=== PATIENT | male | born 1950 | race Caucasian/White ===

== ENCOUNTER 2023-04-30 09:01 | Day surgery (SDC) | payer MEDICARE, OTHER, SELFPAY ==
--- NOTE | 2023-04-29 12:09 | P.CONAN_ITS ---
Documented by User: Pat Lyon NP 04/29/23 12:10 HPI - Anesthesia Eval Consult details Narrative: 72yo M for Upper Endoscopy and Colonoscopy [facility] Past Medical History Medical History Chronic constipation CKD (chronic kidney disease), stage III Diabetes Elevated cholesterol GERD (gastroesophageal reflux disease) HTN (hypertension) Prostate cancer Retinopathy Stress Urinary incontinence Surgical History Surgical History Hx of colonoscopy Hx of esophagogastroduodenoscopy Hx of prostatectomy Status post implantation of artificial urinary sphincter Social History Social History Patient Tobacco Use Status: Former Tobacco user Are you DNR?: No Advance Directives: No Advance Directives Information Provided: Yes Nutrition Risks: No Nutritional Risk Meds Allergies Allergy/AdvReac Type Severity Reaction Status Date / Time No Known Allergies Allergy Verified 04/30/23 10:00 Home Medications Medication Instructions Recorded Confirmed Last Taken Type cholecalciferol (vitamin D3) 50 50 mcg PO DAILY 04/29/23 04/29/23 Unknown History mcg (2,000 unit) capsule (Vitamin D3) clopidogrel 75 mg tablet 75 mg PO DAILY 04/29/23 04/29/23 04/23/23 History diltiazem HCl 180 mg 180 mg PO DAILY 04/29/23 04/29/23 Unknown History capsule,extended release 24 hr dulaglutide 1.5 mg/0.5 mL mg subcut QWEEK 04/29/23 Unknown History subcutaneous pen injector (Trulicity) insulin glargine 100 unit/mL (3 35 unit subcut BEDTIME 04/29/23 04/29/23 Unknown History mL) subcutaneous pen (Basaglar KwikPen U-100 Insulin) isosorbide mononitrate 30 mg 30 mg PO DAILY 04/29/23 04/29/23 Unknown History tablet,extended release 24 hr metformin 1,000 mg tablet 1,000 mg PO BID 04/29/23 04/29/23 Unknown History omeprazole 20 mg capsule,delayed 20 mg PO BID 04/29/23 04/29/23 Unknown History release polyethylene glycol 3350 17 gram 17 g PO DAILY 04/29/23 04/29/23 Unknown History oral powder packet (Miralax) semaglutide 1 mg/dose (4 mg/3 mL) 1 mg subcut QWEEK 04/29/23 04/29/23 Unknown History subcutaneous pen injector (Ozempic) sennosides 8.6 mg tablet (senna) 8.6 mg PO BID PRN Constipation 04/29/23 04/29/23 Unknown History simvastatin 80 mg tablet 80 mg PO DAILY 04/29/23 04/29/23 Unknown History trospium 60 mg capsule,extended 60 mg PO DAILY 04/29/23 04/29/23 Unknown History release 24 hr Exam Exam Date and Time: April 29, 2023 1209 Documented by User: Laurel Ga MD 04/30/23 11:00 [facility] Past Medical History Medical History Chronic constipation CKD (chronic kidney disease), stage III Diabetes Elevated cholesterol GERD (gastroesophageal reflux disease) HTN (hypertension) Prostate cancer Retinopathy Stress Urinary incontinence Family History Family history of problems with anesthesia: No Surgical History Surgical History Hx of colonoscopy Hx of esophagogastroduodenoscopy Hx of prostatectomy Status post implantation of artificial urinary sphincter History of Problems with Anesthesia: No Social History Social History Patient Tobacco Use Status: Former Tobacco user Are you DNR?: No Advance Directives: No Advance Directives Information Provided: Yes Nutrition Risks: No Nutritional Risk Meds Allergies Allergy/AdvReac Type Severity Reaction Status Date / Time No Known Allergies Allergy Verified 04/30/23 10:00 Home Medications Medication Instructions Recorded Confirmed Last Taken Type cholecalciferol (vitamin D3) 50 50 mcg PO DAILY 04/29/23 04/29/23 Unknown History mcg (2,000 unit) capsule (Vitamin D3) clopidogrel 75 mg tablet 75 mg PO DAILY 04/29/23 04/29/23 04/23/23 History diltiazem HCl 180 mg 180 mg PO DAILY 04/29/23 04/29/23 Unknown History capsule,extended release 24 hr dulaglutide 1.5 mg/0.5 mL mg subcut QWEEK 04/29/23 Unknown History subcutaneous pen injector (Trulicity) insulin glargine 100 unit/mL (3 35 unit subcut BEDTIME 04/29/23 04/29/23 Unknown History mL) subcutaneous pen (Basaglar KwikPen U-100 Insulin) isosorbide mononitrate 30 mg 30 mg PO DAILY 04/29/23 04/29/23 Unknown History tablet,extended release 24 hr metformin 1,000 mg tablet 1,000 mg PO BID 04/29/23 04/29/23 Unknown History omeprazole 20 mg capsule,delayed 20 mg PO BID 04/29/23 04/29/23 Unknown History release polyethylene glycol 3350 17 gram 17 g PO DAILY 04/29/23 04/29/23 Unknown History oral powder packet (Miralax) semaglutide 1 mg/dose (4 mg/3 mL) 1 mg subcut QWEEK 04/29/23 04/29/23 Unknown History subcutaneous pen injector (Ozempic) sennosides 8.6 mg tablet (senna) 8.6 mg PO BID PRN Constipation 04/29/23 04/29/23 Unknown History simvastatin 80 mg tablet 80 mg PO DAILY 04/29/23 04/29/23 Unknown History trospium 60 mg capsule,extended 60 mg PO DAILY 04/29/23 04/29/23 Unknown History release 24 hr Exam Airway Mallampati Class: II TM Dist: >3cm Neck ROM: Full Loose/Missing/Broken Teeth: Yes and Upper Heart: rrr Lungs: cta Assessment and Plan Assessment Anesthesia Assessment: Anesthesia Plan Discussed and Chart Reviewed Final Anesthetic Review Family History of Problems with Anesthesia: No History of Problems with Anesthesia: No NPO: Yes ASA Class: III Final Preanesthetic Review: No Changes in Pt Med Stat, Meds/Allgs Chart Reviewed, Consent Obtained/Reviewed and Anes Risks/Benef Reviewed Anesthetic Plan Anesthetic Plan: MAC: Disposition: Standard PACU
[2023-04-30 09:14] VITALS: BMI 25.8
[2023-04-30] MEDS: Lactated Ringers 1,000 ML 50 ML IVCONT (09:47)
[2023-04-30 09:59] VITALS: BP 134/70; PULSE 89; RESP 18; TEMP 36.7; O2SAT 95
[2023-04-30 10:01] LABS: Glucose, Whole Blood 77 mg/dL (60-115)
--- NOTE | 2023-04-30 10:58 | MHC.SHP ---
Pre-Procedural Eval Section A Date of Service: 04/30/23 The patient is an INPATIENT: No Changes since office visit: No Cold of Flu in the past 2 weeks, No New Medical Problems, No Changes in Medication and No Patient answered all questions The History & Physical has been completed within 30 days and I have reviewed it.: Yes Section B Chief Complaint: change in bowel habit,reflux disease Allergies: Allergies Allergy/AdvReac Type Severity Reaction Status Date / Time No Known Allergies Allergy Verified 04/30/23 10:00 Plan I have reviewed the history and physical and performed a pertinent physical examination on my patient. No changes have occurred unless specified. Time Spent With Patient Time: Total time managing care of this patient today ____ minutes.
[2023-04-30] MEDS: Dextrose 10 % 250 ML 50 ML IVCONT (11:11)
--- NOTE | 2023-04-30 11:12 | PC.NURSE ---
Patient POC was 77. patient remained asymptomatic throughtout sss stay. Patient stated checks bs at home and is aware of when it is too low and did not feel this way in sss. Dr. Ga ordered 1000 ml bag of Dextrose 10%. ICU, pharmacy and store room checked and was unavailable in this size. Dextrose 10% 250 ML was available. Ordered changed with the doctor at bedside once she was updated.
--- NOTE | 2023-04-30 11:40 | P.BOP_ITS ---
Brief Operative Note Date of Service: 04/30/23 Pre-op diagnosis: gerd change in bowel Post-op diagnosis: same Procedure: egd incomplete colonoscopy/flexible sigmoidoscopy Surgeon: Tan Chauhan Anesthesia: MAC Was an Hydraulic And Plumbing Installer used for this Procedure?: No Estimated blood loss (mL): 2 Pathology: other Condition: stable Disposition: PACU
[2023-04-30 11:43] VITALS: BP 104/65; PULSE 79; RESP 16; TEMP 36.4; O2SAT 98
[2023-04-30 11:58] VITALS: BP 108/69; PULSE 76; RESP 16; TEMP 36.4; O2SAT 98
--- NOTE | 2023-04-30 12:41 | OP_ITS ---
DATE OF SERVICE: 04/30/2023 SURGEON: Tan Chauhan MD INDICATIONS: 1. Gastroesophageal reflux disease. 2. Change in bowels. PREOPERATIVE DIAGNOSIS: POSTOPERATIVE DIAGNOSIS: PROCEDURE PERFORMED: 1. Upper endoscopy with biopsy. 2. Flexible sigmoidoscopy to about 30 cm. ESTIMATED BLOOD LOSS: COMPLICATIONS: ANESTHESIA: Monitored anesthesia care. ASSISTANTS: SPECIMENS: DESCRIPTION OF PROCEDURE: A history and physical was performed. The risks and benefits of the procedure were explained to the patient. Informed consent was obtained. The patient was placed in the left lateral decubitus position. The Olympus video gastroscope was introduced into the esophagus, stomach, and duodenum. Examination was performed. The scope was removed he was repositioned for colonoscopy. A digital rectal exam was performed and was found to be normal. The Olympus pediatric video colonoscope was introduced into the rectum and advanced to 30 cm. Further examination was not possible due to formed stool in the sigmoid. Examination was performed, and the scope was removed. He tolerated both procedures well and was returned to the recovery area in stable condition. FINDINGS: Upper endoscopy: 1. Esophagus: The esophagus was normal. There was an irregular EG junction. This was biopsied. There was a 2 cm hiatal hernia. 2. Stomach: The stomach showed several benign-appearing less than 10 mm polyps in the body and fundus consistent with fundic colon polyps. Two of these were biopsied. Antral biopsies were also obtained to rule out H pylori. There was no ulceration or gastritis. 3. Duodenum: The bulb and 2nd portion were normal. Flexible sigmoidoscopy: The scope could only be advanced to 30 cm due to formed stool present in the sigmoid. There were no mucosal changes. Retroflexed examination was not attempted due to the poor prep. IMPRESSION: 1. Gastroesophageal reflux disease. 2. Incomplete colonoscopy/flexible sigmoidoscopy. RECOMMENDATION: 1. Follow up the biopsy results. 2. Repeat colonoscopy should be performed after a 2 day bowel prep if the patient is agreeable. MD YANA Kenney/OBED / [id number]
== END 2023-04-30 12:40 | disposition home or self-care (01) ==
PROVIDERS: PCP Internal Medicine; Visit Provider Internal Medicine Gastroenterology
PROC: (CPT 45330; principal; 2023-04-30 10:30)
DX: R19.4 Change in bowel habit (principal); K59.09 Other constipation; K21.9 Gastro-esophageal reflux disease without esophagitis; K31.7 Polyp of stomach and duodenum; K44.9 Diaphragmatic hernia without obstruction or gangrene; I12.9 Hypertensive chronic kidney disease with stage 1 through stage 4 chronic kidney disease, or unspecified chronic kidney disease; E11.22 Type 2 diabetes mellitus with diabetic chronic kidney disease; N18.30 Chronic kidney disease, stage 3 unspecified; N39.3 Stress incontinence (female) (male); E78.5 Hyperlipidemia, unspecified; H35.00 Unspecified background retinopathy; Z79.4 Long term (current) use of insulin; Z79.899 Other long term (current) drug therapy; Z85.46 Personal history of malignant neoplasm of prostate; Z87.891 Personal history of nicotine dependence
CPT/HCPCS: 45330; 43239; 82947; 88305; 88342

== ENCOUNTER 2023-06-15 08:42 | Day surgery (SDC) | payer MEDICARE, OTHER, SELFPAY ==
--- NOTE | 2023-06-14 14:42 | HO.ANESPROP2 ---
Documented by User: Pat Lyon NP 06/14/23 14:47 HPI - Anesthesia Eval Consult details Narrative: 73yo M for Colonoscopy s/p EGD and [place] 04/2023 with MAC clopidagrel for hx TIA ~2007 PMF[facility] Past Medical History Medical History Chronic constipation CKD (chronic kidney disease), stage III Diabetes Elevated cholesterol GERD (gastroesophageal reflux disease) HTN (hypertension) Prostate cancer Retinopathy Stress Urinary incontinence Family History Family history of problems with anesthesia: No Surgical History Surgical History Hx of colonoscopy Hx of esophagogastroduodenoscopy Hx of prostatectomy Status post implantation of artificial urinary sphincter History of Problems with Anesthesia: No Social History Social History Patient Tobacco Use Status: Former Tobacco user Are you DNR?: No Advance Directives: No Advance Directives Information Provided: Yes Nutrition Risks: No Nutritional Risk Meds Allergies Allergy/AdvReac Type Severity Reaction Status Date / Time No Known Allergies Allergy Verified 04/30/23 10:00 Home Medications Medication Instructions Recorded Confirmed Last Taken Type cholecalciferol (vitamin D3) 50 50 mcg PO DAILY 04/29/23 04/29/23 Unknown History mcg (2,000 unit) capsule (Vitamin D3) clopidogrel 75 mg tablet 75 mg PO DAILY 04/29/23 04/29/23 04/23/23 History diltiazem HCl 180 mg 180 mg PO DAILY 04/29/23 04/29/23 Unknown History capsule,extended release 24 hr dulaglutide 1.5 mg/0.5 mL mg subcut QWEEK 04/29/23 Unknown History subcutaneous pen injector (Trulicity) insulin glargine 100 unit/mL (3 35 unit subcut BEDTIME 04/29/23 04/29/23 Unknown History mL) subcutaneous pen (Basaglar KwyaelPen U-100 Insulin) isosorbide mononitrate 30 mg 30 mg PO DAILY 04/29/23 04/29/23 Unknown History tablet,extended release 24 hr metformin 1,000 mg tablet 1,000 mg PO BID 04/29/23 04/29/23 Unknown History omeprazole 20 mg capsule,delayed 20 mg PO BID 04/29/23 04/29/23 Unknown History release polyethylene glycol 3350 17 gram 17 g PO DAILY 04/29/23 04/29/23 Unknown History oral powder packet (Miralax) semaglutide 1 mg/dose (4 mg/3 mL) 1 mg subcut QWEEK 04/29/23 04/29/23 Unknown History subcutaneous pen injector (Ozempic) sennosides 8.6 mg tablet (senna) 8.6 mg PO BID PRN Constipation 04/29/23 04/29/23 Unknown History simvastatin 80 mg tablet 80 mg PO DAILY 04/29/23 04/29/23 Unknown History trospium 60 mg capsule,extended 60 mg PO DAILY 04/29/23 04/29/23 Unknown History release 24 hr Exam Exam Date and Time: June 14, [id number] Assessment and Plan Assessment Anesthesia Assessment: Chart Reviewed Final Anesthetic Review Family History of Problems with Anesthesia: No History of Problems with Anesthesia: No Documented by User: Zoe Reed MD 06/15/23 10:19 PMF Past Medical History Medical History Chronic constipation CKD (chronic kidney disease), stage III Diabetes Elevated cholesterol GERD (gastroesophageal reflux disease) HTN (hypertension) Prostate cancer Retinopathy Stress Urinary incontinence Surgical History Surgical History Hx of colonoscopy Hx of esophagogastroduodenoscopy Hx of prostatectomy Status post implantation of artificial urinary sphincter Social History Social History Patient Tobacco Use Status: Former Tobacco user Are you DNR?: No Advance Directives: No Advance Directives Information Provided: Yes Nutrition Risks: No Nutritional Risk Meds Allergies Allergy/AdvReac Type Severity Reaction Status Date / Time No Known Allergies Allergy Verified 04/30/23 10:00 Home Medications Medication Instructions Recorded Confirmed Last Taken Type cholecalciferol (vitamin D3) 50 50 mcg PO DAILY 04/29/23 04/29/23 Unknown History mcg (2,000 unit) capsule (Vitamin D3) clopidogrel 75 mg tablet 75 mg PO DAILY 04/29/23 04/29/23 04/23/23 History diltiazem HCl 180 mg 180 mg PO DAILY 04/29/23 04/29/23 Unknown History capsule,extended release 24 hr dulaglutide 1.5 mg/0.5 mL mg subcut QWEEK 04/29/23 Unknown History subcutaneous pen injector (Trulicity) insulin glargine 100 unit/mL (3 35 unit subcut BEDTIME 04/29/23 04/29/23 Unknown History mL) subcutaneous pen (Basaglar KwikPen U-100 Insulin) isosorbide mononitrate 30 mg 30 mg PO DAILY 04/29/23 04/29/23 Unknown History tablet,extended release 24 hr metformin 1,000 mg tablet 1,000 mg PO BID 04/29/23 04/29/23 Unknown History omeprazole 20 mg capsule,delayed 20 mg PO BID 04/29/23 04/29/23 Unknown History release polyethylene glycol 3350 17 gram 17 g PO DAILY 04/29/23 04/29/23 Unknown History oral powder packet (Miralax) semaglutide 1 mg/dose (4 mg/3 mL) 1 mg subcut QWEEK 04/29/23 04/29/23 Unknown History subcutaneous pen injector (Ozempic) sennosides 8.6 mg tablet (senna) 8.6 mg PO BID PRN Constipation 04/29/23 04/29/23 Unknown History simvastatin 80 mg tablet 80 mg PO DAILY 04/29/23 04/29/23 Unknown History trospium 60 mg capsule,extended 60 mg PO DAILY 04/29/23 04/29/23 Unknown History release 24 hr Exam Airway Mallampati Class: III TM Dist: >3cm Neck ROM: Full Loose/Missing/Broken Teeth: Yes and Upper Heart: RRR Lungs: CTA Assessment and Plan Assessment Anesthesia Assessment: Anesthesia Plan Discussed Final Anesthetic Review NPO: Yes ASA Class: III Final Preanesthetic Review: Meds/Allgs Chart Reviewed, Consent Obtained/Reviewed and Anes Risks/Benef Reviewed Patient Risk: Intermediate Procedure Risk: Low Anesthetic Plan Anesthetic Plan: MAC: Disposition: Standard PACU
[2023-06-15 06:16] VITALS: BMI 25.8
[2023-06-15 09:34] VITALS: BP 153/77; PULSE 83; RESP 18; TEMP 36.6; O2SAT 97
[2023-06-15 09:34] LABS: Glucose, Whole Blood 77 mg/dL (60-115)
[2023-06-15] MEDS: Lactated Ringers 1,000 ML 100 ML IVCONT (09:49)
[2023-06-15] MEDS: Dextrose 5 % 100 ML IVCONT (09:50)
[2023-06-15 10:08] LABS: Glucose, Whole Blood 95 mg/dL (60-115)
--- NOTE | 2023-06-15 10:21 | PC.NURSE ---
Dr. Reed updated that patient POC was 77 and patient was feeling slightly symptomatic. She ordered 5% Dextrose 100 ML. F/u POC was 95. Patient stated feeling much better.
--- NOTE | 2023-06-15 10:34 | MHC.SHP ---
Pre-Procedural Eval Section A Date of Service: 06/15/23 Section B Chief Complaint: Other specified symptoms and signs involving Details of Present Illness: see H&P no changes Relevant Family History (Specify if Yes): No Relevant Social History: None Present Medications: see Short Stay Collaborative assessment Medical History: No relevant PMH History of Previous Operations: No relevant previous surgery Allergies: Allergies Allergy/AdvReac Type Severity Reaction Status Date / Time No Known Allergies Allergy Verified 04/30/23 10:00 Review of Systems Sugical H&P ROS: Negative: Constitution, Cardiovascular, Respiratory, Neurological, Psychiatric, Hem-Onc, Allergic/Immunologic, Gastrointestinal, Genitourinary, Musculoskeletal, Integumentary, Endocrine and Eyes/Ears/Nose/Throat Exam Surgical H&P Exam: Normal: HEENT, Normal: Heart, Normal: Lungs, Normal: Extremities, Normal: Abdomen, Normal: Skin and Normal: Neurological Plan I have reviewed the history and physical and performed a pertinent physical examination on my patient. No changes have occurred unless specified. Time Spent With Patient Time: Total time managing care of this patient today ____ minutes.
[2023-06-15 11:25] VITALS: BP 131/80; PULSE 77; RESP 20; TEMP 36.4; O2SAT 98
--- NOTE | 2023-06-15 11:26 | PM.OP ---
Brief Operative Note Date of Service: 06/15/23 Pre-op diagnosis: change in bowels Post-op diagnosis: same Procedure: colonoscopy Surgeon: Tan Chauhan Anesthesia: MAC Was an Early Childhood Director used for this Procedure?: No Estimated blood loss (mL): 0 Pathology: none sent Condition: stable Disposition: PACU
[2023-06-15 11:34] LABS: Glucose, Whole Blood 101 mg/dL (60-115)
[2023-06-15 11:40] VITALS: BP 153/84; PULSE 74; RESP 18; TEMP 36.4; O2SAT 93
--- NOTE | 2023-06-15 22:05 | OP_ITS ---
DATE OF SERVICE: 06/15/2023 SURGEON: Tan Chauhan MD INDICATIONS: Change in bowel habits. PREOPERATIVE DIAGNOSIS: POSTOPERATIVE DIAGNOSIS: PROCEDURE PERFORMED: Colonoscopy to the hepatic flexure. ESTIMATED BLOOD LOSS: COMPLICATIONS: ANESTHESIA: Monitored anesthesia care. ASSISTANTS: SPECIMENS: DESCRIPTION OF PROCEDURE: A history and physical were performed. The risks and benefits of the procedure were explained to the patient. Informed consent was obtained. The patient was placed in the left lateral decubitus position. A digital rectal exam was performed and was found to be normal. The Olympus pediatric video colonoscope was introduced into the rectum. The scope could only be advanced to the hepatic flexure due to the poor prep. Examination was performed. The scope was removed. He tolerated the procedure well and was taken to recovery area in stable condition. FINDINGS: The exam was extremely limited due to a large amount of stool, both liquid and solid present in the colon. This limited the examination for detection of polyps. No mass lesion was identified. The mucosa where it was visualized after washing,, appeared normal. The exam was further limited by the patient's inability to hold air; and continuous evacuation of both liquid and solid stool during the procedure, made the procedure extremely difficult. Retroflexed examination was limited. Some internal hemorrhoids were identified. Basically the exam was nondiagnostic because of the incomplete prep. IMPRESSION: 1. Incomplete colonoscopy. 2. Change in bowel habits. 3. Limited examination as above. 4. consider repeat examination with 2 day prep. MD YANA Kenney/ALFREDOL / [id number] [facility]
== END 2023-06-15 12:17 | disposition home or self-care (01) ==
PROVIDERS: PCP Internal Medicine; Visit Provider Internal Medicine Gastroenterology
PROC: 0DJD8ZZ Inspection of Lower Intestinal Tract, Via Natural or Artificial Opening Endoscopic (ICD-10-PCS; CPT 45378; principal; 2023-06-15 09:50)
DX: R19.8 Other specified symptoms and signs involving the digestive system and abdomen (principal); K64.8 Other hemorrhoids; K21.9 Gastro-esophageal reflux disease without esophagitis; Z53.8 Procedure and treatment not carried out for other reasons; Z79.899 Other long term (current) drug therapy; E11.22 Type 2 diabetes mellitus with diabetic chronic kidney disease; I12.9 Hypertensive chronic kidney disease with stage 1 through stage 4 chronic kidney disease, or unspecified chronic kidney disease; N18.30 Chronic kidney disease, stage 3 unspecified; E78.5 Hyperlipidemia, unspecified; Z85.46 Personal history of malignant neoplasm of prostate; Z87.891 Personal history of nicotine dependence; Z79.84 Long term (current) use of oral hypoglycemic drugs; Z79.85 Long-term (current) use of injectable non-insulin antidiabetic drugs
CPT/HCPCS: 45378; 82947

== ENCOUNTER → 2024-12-26 11:02 | Outpatient (BNVA) | payer MEDICARE, OTHER, SELFPAY | PROVIDERS: PCP Internal Medicine; Visit Provider Student in an Organized Health Care Education/Training Program | DX: E11.22 Type 2 diabetes mellitus with diabetic chronic kidney disease (principal); N18.31 Chronic kidney disease, stage 3a; E78.2 Mixed hyperlipidemia; Z79.4 Long term (current) use of insulin | CPT/HCPCS: 82947; 83036; 99202 ==

== ENCOUNTER 2025-01-15 11:00 | Outpatient (AMB) | payer MEDICARE, OTHER, SELFPAY ==
--- NOTE | 2025-01-15 11:19 | A.OFFVIS_ITS ---
Vital Signs 3 01/15/25 11:20 Height 5 ft 8 in Weight 164 lb 3.91 oz BMI 25.0 BP 114/60 Blood Pressure Location Lt brachial Position Sitting Pulse 67 Pulse Source Pulse Oximeter Intake Visit Reasons: T2DM Intake Note: Patient present today for Type 2 Diabetes Mellitus Last Diabetic eye exam: 06/2024 Last Podiatry Visit: Doesn't have one Random Glucose: 144 mg/dl HgA1C: 10.2% 12/26/24 Shear Grinder Operator Helper Required: No Accompanied by: Spouse Allergies No Known Allergies Allergy (Verified 01/15/25 11:24) HPI Comments Details: 74-year-old male here today for follow up of type 2 diabetes mellitus with long- term insulin use with complications of CKD stage 2, CAD, hyperlipidemia, hypertension, retinopathy. Here today with Sina . History of diabetes Diagnosed at the age of late 20s. Family history Brother: Type 2 DM no one with Type 1 DM Prior therapy: Has been on insulin for over 10 years Has been on OZempic for many years as well Jardiance started sometime early 2023 Previously has tried Trulicity Current regimen: Ozempic 2 mg weekly increased from 1 mg 12/26/24 Jardiance 25 mg daily Basagalar 45 units daily at bedtime Reports good adherence never misses medication SMBG fasting 79, 164, 119, 95, 95, 171 2 hours post meal 277, 243, 450, 301, 474, 301 Random Bg today 144mg/dl A1c POC 12/26/24 10.2%. Does endorse symptoms of hyperglycemia including polyphagia, polyuria, polydipsia. One blood sugar is 71 mg/dl from April 14? He says he had a single epiesode in August 2024 Vaccines:Flu shot July 2024, Pneumoccocal vaccine , no booster for COVID ,but vaccinated initially Complications Eye exam: Last eye exam was 06/2024, has retinopathy , bad report last visit . Neuropathy: none Kidney disease: Follows with Nephrology AMY Espinoza in [place] , CKD stage 2-3 03/29/2024: Albumin/creatinine ratio 164 Urine albumin 102 0.6 EGFR 40 Creatinine 1.74 Macrovascular complications:has CAD? , has has TIAs in the past Statin:simvasatin 80 mg daily , 05/2024: LDL 75 mg per day ABHINAV/ARB: no ABHINAV /ARB Exercise: Walks in summer, takes the dog out not much more Has a appointments with CDE and bus inspector on 01/16/2025 tomorrow Diet control: never seen bus inspector 7-8Am : cereal or ivorian muffin snacks salsa with rackers or chips Lunch 11-1130 sandwich with tuna or salami Snacks salsa with chips Dinner : spaghetti No dessert [place] water with some sugar Physical exam General: sitting comfortably in no acute distress HEENT: normocephalic/atraumatic, Neck: supple, symmetrical Cardiac: normal heart sounds Pulm: normal breath sounds B/L, no added breath sounds Abd: not distended, no tenderness Extremities: no edema, no signs of myxedema Neuro: AAO x3, Speech: normal, no facial droop, moving all 4 extremities PFSH Medical History (Updated 12/26/24 @ 12:29 by Linda Pacheco MD) HLD (hyperlipidemia) Diabetes mellitus Prostate cancer Elevated cholesterol HTN (hypertension) Retinopathy CKD (chronic kidney disease), stage III Stress Urinary incontinence GERD (gastroesophageal reflux disease) Chronic constipation Diabetes Surgical History Hx of colonoscopy Hx of esophagogastroduodenoscopy Hx of prostatectomy Status post implantation of artificial urinary sphincter Social History Patient Tobacco Use Status: Former Tobacco user Physical Exam Vital Signs: Last Vital Signs Pulse 67 01/15/25 11:20 BP 114/60 01/15/25 11:20 BMI result Body Mass Index 25.0 Assessment & Plan Assessment & Plan (1) Diabetes mellitus: Code(s): E11.9 - Type 2 diabetes mellitus without complications Category: Medical Qualifiers: Chronic kidney disease stage: stage 3 (moderate) Chronic kidney disease stage 3 subtype: stage 3a (GFR 45-59) Diabetes mellitus complication detail: w ith chronic kidney disease Diabetes mellitus complication status: with kidney complications Diabetes mellitus extermination inspector insulin use: with extermination inspector use D iabetes mellitus type: type 2 Qualified Code(s): E11.22 - Type 2 diabetes mellitus with diabetic chronic kidney disease; N18.31 - Chronic kidney disease, stage 3a; Z79.4 - nursing home (current) use of insulin Plan: 74-year-old male who was diagnosed with type 2 diabetes mellitus when he was in his late 20s, who is currently on long-term insulin with complications of CKD stage 2/3A, microalbuminuria, retinopathy, CAD, TIA. A1c 12/26/2024 10.2%. It is interesting that over the past year patient's A1c has been climbing up with no improvement with the increase in insulin. Patient endorses adherence to his medications. I does definitely important for him to see our educator so at least it can be ensured that he is taking his insulin the right way. He says his weight has been stable, but it is important to keep in mind that if he continues to have worsened control despite modifying his regimen, there might be a secondary reason to worsening control and we should keep in mind other sinister reasons such as pancreatic cancer? I prescribed him Dexcom G7 sensor last time, this is still awaiting insurance authorization, he brought his glucometer today and I was able to sees readings that he is having better readings for fasting blood sugars mostly around 90s to early 100s, however he continues to have elevated post meal blood sugars in the 200s to up to 400s. I will switch his Basaglar to morning time so he can over how have better control over the day. At this point I will also start him on some mealtime insulin before his supper to control these postprandial spikes. I Plan: -continue Ozempic to 2 mg weekly -switch Basaglar to morning time and reduce it to 40 units daily, I told him we can inject 10 units Basaglar tonight to allow for transition to tomorrow morning. -start insulin Humalog 5 units 15 mins before supper daily. -continue Jardiance 25 mg daily -waiting for pre authorization for Dexcom G7 sensor -advised importance of checking blood sugars at least thrice a day before he gets his sensors, fasting , pre meal before supper and 2 hours post meal, targets described -hypoglycemia education provided -discussed importance of lowering blood sugars and risks of hyperglycemia -follow up in 4 weeks -diabetes education appointment pending for CGM education -nutrition appointment pending -up-to-date with eye visit, has a history of retinopathy, follows with Ophthalmology -lipid panel, urine microalbumin, CMP, platelet ordered to be done prior to next visit, I had ordered these last visit, however they forgot to do them. Note: Given early age of onset of type 2 diabetes, plus uncontrolled diabetes, we will consider checking antibodies and a C-peptide in the future visits. (2) HLD (hyperlipidemia): Code(s): E78.5 - Hyperlipidemia, unspecified Category: Medical Qualifiers: Hyperlipidemia type: mixed hyperlipidemia Qualified Code(s): E78.2 - Mixed hyperlipidemia Plan: On simvastatin 80 mg daily Last LDL from May 2024 was 75 mg/dL, goal LDL less than 70 mg/dL Plan: -repeat lipid panel ordered last visit -continue simvastatin 80 mg daily Plan I spent 30 minutes in reviewing the record, seeing the patient and documenting in the medical record. Medications: New 2 insulin lispro (Humalog KwikPen (U-100) Insulin) Daily 15 mins before supper 5 units (0.05 mL) subcut DAILY 15 mL 4RF pen needle, diabetic As directed to inject insulin twice a day 100 ea 3RF insulin glargine (Basaglar KwikPen U-100 Insulin) 40 units (0.4 mL) subcut QAM 15 mL 4RF Patient Instructions: Do fasting blood work and urine test, if you do this at outside lab, please have the results sent over Start insulin humalog (lispro) 5 units 15 mins before supper /dinner Always check blood sugar before giving insulin , if your premeal sugar is less than 85 mg/dl do not take the mealtime insulin Switch basagalar units from bedtime to morning , reduce basagalar to 40 units daily Continue jardiance Continue ozempic 2 mg weekly See [place] educator See bus inspector paper mill superintendent Dexcom sensor once insurance approve, please follow on the status of approval and bring this to your educator visit for sensor application. 'Always bring your meter to visits Continue checking blood sugars fasting in AM, 15 mins before supper , plus 2 hours after a meal your choice lunch or dinner Rule of 15 Treatment for Hypoglycemia (Low blood sugar) If your blood glucose is low (70 and below)*, follow the steps below to treat: Eat or drink something from the list below equal to 15 grams of carbohydrate (carb). Rest for 15 minutes Re-check your blood glucose. If it is still low, (below 70), repeat step 1 above. ? If your next meal is more than an hour away, you will need to eat one carbohydrate choice as a snack to keep your blood glucose from going low again. ?If you can't figure out why you have low blood glucose, call your healthcare provider, as your medicine may need to be adjusted. ?Always carry something with you to treat an insulin reaction. Use food from the list below. ? Foods equal to One Carbohydrate Choice (15 grams of carbohydrate): 3 Glucose ?tablets or 4 Dextrose tablets 4 ounces of fruit juice 5-6 ounces (about 1/2 can) of regular soda such as Coke or Pepsi ? 7-8 gummy or regular Life Savers ? 1 Tbsp. of sugar or jelly NOTE: If your blood sugar is less than 50, double the portion above for a total of 30 gm. ?Carbohydrate. ? Follow meal plan of 45-60 g of consistent carbohydrates at 3 meals each day and 15 g of carbohydrate at 1-2 snacks each day. Coding Level of Care Code Est Pt Level 4 (78635) Complex EM visit Add On G2211 Diagnoses Type 2 diabetes mellitus with stage 3a chronic kidney disease, with long-term current use of insulin E11.22; N18.31; Z79.4 Chronic kidney disease stage: stage 3 (moderate) Chronic kidney disease stage 3 subtype: stage 3a (GFR 45-59) Diabetes mellitus complication detail: with chronic kidney disease Diabetes mellitus complication status: with kidney complications Diabetes mellitus [facility] insulin use: with [facility] use Diabetes mellitus type: type 2 Mixed hyperlipidemia E78.2 Hyperlipidemia type: mixed hyperlipidemia Time Spent (min) 30
[2025-01-15 11:20] VITALS: BP 114/60; PULSE 67; BMI 25.0
[2025-01-15 11:29] LABS: Glucose, Whole Blood 144 mg/dL (60-115)
--- OUTSIDE RECORDS SUMMARY | 2025-01-15 12:40 | XMS_ITS ---
Author Organization [facility] Address [address] [place] [phone] Care Team Providers Care Inspector Type Name Role Phone Fausto MATA, Dina Primary Care Provider Tan Martin Jr REASON FOR VISIT [facility] refill requested MEDICATIONS Medication SIG (Take, Route, Frequency, Duration) Notes Start Date End Date Status Pantoprazole Sodium 40 MG 1 tablet Orall y Once a day for 30 days 04/07/2023 Active Encounters Encounter Location Date Provider Diagnosis [facility] [address] [facility] [address] [place] [phone] 12/24/2023 Tan Chauhan Jr Gastroesophageal reflux disease, unspecified whether esophagitis present K21.9 ASSESSMENTS Encounter Date Diagnosis Assessment Notes Treatment Notes Treatment Clinical Notes 12/24/2023 Gastroesophageal ref lux disease, unspecified whether esophagitis present (ICD-10 - K21.9) PLAN OF TREATMENT Medication Medication Name Sig Start Date Stop Date Notes Pantoprazole Sodium 40 MG 1 tablet Orall y Once a day for 30 days 04/07/2023
--- OUTSIDE RECORDS SUMMARY | 2025-01-15 12:40 | XMS_ITS | Clinical Summary ---
Author Organization [facility] Address [address] [phone] Phone Care Team Providers Care Plaster Form Maker Name Role Phone Dina Lambert MD Primary Care Provider [phone] Allergies No known active allergies Medications Insulin Glargine (BASAGLAR KWIKPEN SC) Inject 45 Units under the skin 1 (one) time each day Active isosorbide dinitrate (ISORDIL) 30 MG tablet Take 1 tablet by mouth 1 (one) time each day Active omeprazole (PriLOSEC) [address] capsule Take 20 mg by mouth 1 (one) time each day Active simvastatin (ZOCOR) 80 MG tablet Take 80 mg by mouth at bed time Active Cartia XT 180 MG 24 hr capsule Take 180 mg by mouth 1 (one) time each day 4 Active Cholecalciferol 50 MCG (1999 UT) capsule Take 1 capsule by mouth 1 (one) time each day 5 Active Ozempic, 1 MG/DOSE, 4 MG/3ML solution pen-injector INJECT 1MG UNDER THE SKIN ONCE WEEKLY ON THE SAME DAY OF EACH WEEK DIRECTED 4 Active aspirin (ST MARIO) 81 MG EC tablet Take 81 mg by mouth 1 (one) time each day Active senna (SENOKOT) 8.6 MG tablet Take 1 tablet by mouth in the morning and 1 tablet in the evening. Active sodium bicarbonate 650 MG tablet Take 1 tablet (650 mg total) by mouth in the morning and 1 tablet (650 mg total) in the evening and 1 tablet (650 mg total) before bedtime. 270 tablet 3 4 03/29/20 25 Active Empagliflozin (Jardiance) 10 MG tablet Take 10 mg by mouth 1 (one) time each day in the morning 30 tablet 5 4 Active Additional Information Patient taking differently: 25 mgOral Every morning, Reported on 11/27/2024 dilTIAZem HCl ER 180 MG tablet sustained-releas e 24 hour Take 180 mg by mouth 8 Active Active Problems Problem Noted Date Diagnosed Date Chronic kidney disease stage 3 03/28/2024 Hypertensive disorder 03/28/2024 Hypomagnesemia 03/28/2024 Proteinuria 03/28/2024 Renal disorder due to type 2 diabetes mellitus 0 03/28/2024 Encounters Date Type Department Care Team Description 11/27/2024 2:30 PM EST Office Visit [facility] [address] [phone] Lauro Zacarias MD Stage 3 chronic kidney disease, not otherwise specified (HCC) (Primary Dx); Hypertension; Type 2 diabetes mellitus with diabetic chronic kidney disease (HCC); Other proteinuria 10/17/2024 Orders Only [facility] [address] [phone] Provider, MD Malaika from Last 3 Months Immunizations Name Administration Dates Next Due Pneumococcal Polysaccharide 10/02/2015 Family History Medical History Relation Comments Heart disease Father Cancer Mother Diabetes Sibling 1 Cancer Sibling 2 Relation Status Comments Father Mother Sibling 1 Sibling 2 Social History Tobacco Use Types Packs/Day Years Used Date Smoking Tobacco: Smoker, Current Status Unknown Alcohol Use Standard Drinks/Week Comments Yes 0 (1 standard drink = 0.6 oz pure alcohol) Alcoholic Drinks/day: Occasional social drink Sex and Gender Information Value Date Recorded Sex Assigned at Not on file Legal Sex Male 4:41 PM EST Gender Identity Not on file Sexual Orientation Not on file Last Filed Vital Signs Vital Sign Reading Time Taken Comments Blood Pressure 110/62 11/27/2024 2:35 PM EST Pulse 80 11/27/2024 2:35 PM EST Temperature - - Respiratory Rate - - Oxygen Saturation 98% 03/29/2024 9:38 AM EDT Inhaled Oxygen Concentration - - Weight 74.4 kg (164 lb) 11/27/2024 2:35 PM EST Height - - Body Mass Index - - Plan of Treatment Upcoming Encounters Date Type Department Care Team (Late st Contact Info) Description 06/11/2025 1:45 PM EDT Office Visit [facility].. [address] [phone] Lauro Zacarias MD [address] [phone] Health Maintenance Due Date Last Done Comments Pneumococcal Vaccine: 65+ Ye ars (2 of 2 - PCV) 10/02/2016 10/02/2015 Diabetes: Hemoglobin A1C 12/22/2020 Diabetes: Ophthalmology Exam 12/22/2020 Diabetes: Pedal Pulse Checked 12/22/2020 Diabetes: Sensory Foot Exam 12/22/2020 Diabetes: Visual Foot Exam 12/22/2020 Influenza Vaccine (#1) 2024 Hepatitis B Vaccine Aged Out No longe r eligible based on patient's age to complete this topic Insurance MEDICARE MEDICARE [facility] Care Teams Plaster Form Maker Relationship Specialty Start Date End Date Dina Lambert MD [address] [place] [address], [address] [place] [address] PCP - General Internal Medicine 03/29/24
--- OUTSIDE RECORDS SUMMARY | 2025-01-15 12:40 | XMS_ITS | Patient Health Record ---
Author Organization [facility] Address [address] [place] [phone] Care Team Providers Care Hand Loom Weaver Name Role Phone Fausto MATA, Dina Primary Care Provider Tan Martin Jr Unavailable ALLERGIES Allergen (clinical drug ingredient) Drug/Non Drug Allergy documented on EMR Reaction Allergy Type Onset Date Status hayfever (uncoded) Unknown Allergy A ctive REASON FOR REFERRAL No Information MEDICATIONS Medication SIG (Take, Route, Frequency, Duration) Notes Start Date End Date Status dilTIAZem HCl ER 180 MG 1 tablet Orally Once a day for 30 day(s) Active Simvastatin 80 MG as directed Orally Active MiraLax (colon prep) 17 GM/SCOOP mixed with Gatorade or Crystal Light Orally begin at 5:00 p.m. the day before the procedure for 1 day 04/07/2023 Active Basaglar KwikPen 100 UNIT/ML as directed Subcutaneous Act kelly Clopidogrel Bisulfate 75 MG 1 tablet Orally Once a day for 30 day(s) Active Vitamin D3 50 MCG (2000 UT) 1 capsule Orally Once a day for 30 day(s) Active Isosorbide Mononitrate ER 30 MG 1 tablet in the morning Orally Once a day for 30 day(s) Active metFORMIN HCl 1000 MG 1 tablet with a me al Orally Once a day for 30 day(s) Active Pantoprazole Sodium 40 MG 1 tablet Orall y Once a day for 30 days 04/07/2023 Active Senna 8.6 MG 2 tablets at bedtime as needed Orally Once a day for 30 day(s) Active Trospium Chloride ER 60 MG 1 capsule in the morning on an empty stomach or 1 hour before a meal Orally Once a day for 30 day(s) Active Ozempic (1 MG/DOSE) 4 MG/3ML as directed Subcutaneous Act kelly Smooth LAX 17 GM/SCOOP as directed Orally Active IMMUNIZATIONS Vaccine Route Administration Date Status Comme nts Influenza Unknown 09/08/2022 Administered SOCIAL HISTORY Tobacco Use: Social History Observation Description Date Details (start date - stop date) Never Smoker NA - NA Sex Assigned At : Social History Observation Description Sex Assigned At Unknown Tobacco Use/Smoking Question Answer Notes Patient is a nonsmoker Alcohol Screen Question Answer Notes Did you have a drink contain ing alcohol in the past year? Yes How often did you have a dri nk containing alcohol in the past year? 2 to 4 times a month (2 points) How many drinks did you have on a typical day when you were drinking in the past year? 1 or 2 drinks (0 point) How often did you have 6 or more drinks on one occasion in the past year? Never (0 point) Points 2 Interpretation Negative PROBLEMS Problem Type ICD Code Onset Dates Problem Status W/U Status Risk SNOMED Code Notes Problem Esophageal reflux (K21.9) Active confirmed Esophageal reflux (496450744) Problem Change in bowel movement (R19.8) Active confirmed 34306562 Problem Gastroesophageal reflux disease, unspecified whether esophagitis present (K21.9) Active confirmed [id number] PLAN OF TREATMENT Future Test Test Name Order Date UPPER GI ENDOSCOPY 04/07/2023 COLONOSCOPY 04/07/2023 Insurance Providers Payer Name Payer Address Payer Phone Subscriber Number Group Number Insured Name Patient Relationship to Insured Coverage Start Date Coverage End Date MEDICARE OF [place] [address] [place] [address] [id number] RAJAN PARHAM Self - patient is the insured [facility] [address] [place] [phone] [id number] RAJAN PARHAM Self - patient is the insured MEDICAL (GENERAL) HISTORY Medical History History ICD Code Diabetes mellitus type 2 Chronic constipation Gastroesophageal reflux disease Urinary incontinence, stress Chronic kidney disease stage III Retinopathy Hypertension Hyperlipidemia Prostate cancer Surgical History Surgery Date(Month/Year) Artificial urinary sphincter placement Prostatectomy
== END 2025-01-15 12:03 | disposition home or self-care (01) ==
PROVIDERS: PCP Internal Medicine; Visit Provider Student in an Organized Health Care Education/Training Program
DX: E11.22 Type 2 diabetes mellitus with diabetic chronic kidney disease (principal); N18.31 Chronic kidney disease, stage 3a; Z79.4 Long term (current) use of insulin; E78.2 Mixed hyperlipidemia
CPT/HCPCS: 99214; G2211

== ENCOUNTER → 2025-01-15 11:00 | Outpatient (BNVA) | payer MEDICARE, OTHER, SELFPAY | PROVIDERS: PCP Internal Medicine; Visit Provider Student in an Organized Health Care Education/Training Program | DX: E11.22 Type 2 diabetes mellitus with diabetic chronic kidney disease (principal); N18.31 Chronic kidney disease, stage 3a; E78.2 Mixed hyperlipidemia; Z79.4 Long term (current) use of insulin | CPT/HCPCS: 82947; 99212 ==

== ENCOUNTER 2025-01-16 08:54 | Outpatient (AMB) | payer MEDICARE, OTHER, SELFPAY ==
--- NOTE | 2025-01-16 09:53 | A.OFFVIS_ITS ---
Intake Intake Visit Reasons: T2DM Allergies No Known Allergies Allergy (Verified 01/15/25 11:24) HPI Comprehensive Diabetes Asmnt Most Recent Diabetes Results: No Data to Display [facility] Medical History (Updated 12/26/24 @ 12:29 by Linda Pacheco MD) HLD (hyperlipidemia) Diabetes mellitus Prostate cancer Elevated cholesterol HTN (hypertension) Retinopathy CKD (chronic kidney disease), stage III Stress Urinary incontinence GERD (gastroesophageal reflux disease) Chronic constipation Diabetes Surgical History Hx of colonoscopy Hx of esophagogastroduodenoscopy Hx of prostatectomy Status post implantation of artificial urinary sphincter Social History Patient Tobacco Use Status: Former Tobacco user Assessment & Plan Assessment & Plan (1) Diabetes mellitus: Code(s): E11.9 - Type 2 diabetes mellitus without complications Qualifiers: Diabetes mellitus type: type 2 Diabetes mellitus ferry terminal supervisor insulin use: with ferry terminal supervisor use Diabetes mellitus complication status: with kidney complications Diabetes mellitus complication detail: with chronic kidney disease Chronic kidney disease stage: stage 3 (moderate) Chronic kidney disease stage 3 subtype: stage 3a (GFR 45-59) Qualified Code(s): E11.22 - Type 2 diabetes mellitus with diabetic chronic kidney disease; N18.31 - Chronic kidney disease, stage 3a; Z79.4 - senior living (current) use of insulin Plan: Diabetes self-management education and support participation record Assessment/scale: 1= needs instructed? 2= needs review? 3= comprehe nd keep point? 4= demonstrates understanding/ competent? NC= Not Covered Topics Learning Objective: Initial visit Initial or post srvc Initial or post srvc Initial or post srvc Initial or post srvc Initial or post srvc Post srvc Comments Pre Edu-assessment/plan Outcome or reassess Outcome or reassess Outcome or reassess Outcome or reassess Outcome or reassess Outcome or reassess Diabetes pathophysiology 1 Healthy eating 1 Being active 1 C Taking medication 2 Monitoring glucose 1 A Acute complication 1 Chronic complicated 2 Lifestyle and healthy coping 1 Diabetes distress in support 1 ?Diabetes pathophysiology: ?Defined diabetes med identify own type of diabetes; list 3 options for treating diabetes Healthy eating: ?Described effect of type, amount and ?timing of food on blood glucose; list 3 methods for planning meal Being active: ?State effect of exercise on blood glucose level Taking medication: ?State effect of diabetes medications on diabetes; name diabetes medications taking, action and side effects Monitoring glucose: ?Identify recommended blood glucose targets and personal target Acute complication: ?List symptoms and treatment of hyper and hypoglycemia, DKA, sick day guidelines and guidelines for severe weather or situations of crisis and diabetes supply manage Chronic complication: ?To find the relationship of blood glucose levels to long- term complications of diabetes in screening and preventative measures Lifestyle and healthy coping: ?Described lifestyle and healthy coping strategies to rule out diabetes self-management Diabetes to stress and support: ?Recognize Diabetes to stress and be able to identified support options Learning objectives: The patient was provided with verbal and written education on the following topics as outlined below. Assess patient education level/literacy/barriers, patient at visit with his . Was diagnosed with type 2 diabetes 40+ years ago. Last A1c 10.2% on 12/26/2024. Was seen by Dr. Pacheco on 01/15/2025 is prescribed Humalog 5 units before supper. Patient has not picked up from the pharmacy due to cost of medication. Patient is also waiting approval for Dexcom G7 sensors and air brake man At today's visit we set up sample Dexcom G7 sensor and air brake man Instructed patient sensors water proof you can shower, or swim do not submerge sensor in water for over 30 minutes Is sensor falls off cannot put back in you need to replace sensor, customer service number given to patient for sensor replacement Sensor placed on the back of right arm Patient left visit with sensor in warmup Reviewed how to interpret trend arrows Reminded patient that to check finger sticks if symptoms do not match sensor re ading. Discussed lag time between finger stick and sensor data.? Instructed patient she should always keep blood glucometer for backup testing if needed Reviewed delay of CGM from fingersticks Reminded pt that if symptoms do not match sensor still needs to check fingersticks. The patient met all learning objectives and was able to verbalize understanding and provide teach back of education topics discussed . The patient was provided with the opportunity to ask questions and all questions were answered. Topics covered in today?s session included: Medications (If applicable) * Name of medication? * Dosing/administration instructions? * Mechanism of action? * Potential side effects? * Potential adverse reaction and appropriate treatment? * Review onset, peak, duration Assess for concerns re: insurance coverage, cost, barriers to compliance Insulin/Injectables (If applicable) * Storage/care of insulin?? * Injection sites? * Site rotation? * Onset, peak, duration * Drawing up insulin? * Injecting insulin/other injectables? * Sharps disposal Continuous blood glucose monitoring (if applicable) Hypoglycemia and Hyperglycemia * Signs and symptoms? * Causes?? * Treatment? * Preventing hypoglycemia? * When to seek medical attention Target Goals: * Blood glucose targets and how you feel when your blood glucose is in and out of your target ranges. * Monitoring and knowing your A1C. * What can make blood glucose go up and down and preventing high and low blood glucose. * Review of blood sugar targets in expected goal range and outside of expected goal range. * Problem solving and preventing hyper/hypoglycemia. * Sick day management of diabetes. * Using blood sugar results in decision making process in managing diabetes. ?Patient was receptive to information provided and participated in the discussion. Asked?appropriate questions and demonstrated good understanding of the topics discussed.? ? Educational Materials: The patient was provided with the following written educational materials: Target Goal, Healthy Plate handout Smart Goal:? When glucose levels are above 250mg/dL, patient will increase physical activity, and drink plenty of non carbohydrate fluids Patient Response to instructions: Comprehension of Instructions: Fair Readiness to make changes:? Contemplate How confident they feel about making changes: Fair Portions of this note were created using voice recognition software, please excuse any words or phrases that may have been misinterpreted. Patient Instructions: Include regular daily activity. ADA recommends 30 minutes of exercise 5 days a week. Weight loss talk to PCP or Channel Sales Director before starting new plan. Test blood sugar as directed; Fasting and 2hpp largest meal. Watch trends in results. Utilize results and to assess how food, physical activity and medications affect blood sugar results. Bring glucometer or CGM to next visit. Be knowledgeable about diabetes medication, its action, side effects, efficacy, toxicity, prescribed dosage, appropriate timing and frequency of administration, effect of missed and delayed doses and instructions for storage, travel and safety. Problem solving techniques to monitor hypo/hyperglycemia episodes and treatments. Reduce risk reduction behaviors, smoking cessation, regular eye, foot and dental examinations. Patient instruction: CGM provides information on blood glucose control throughout the day, including hyperglycemia and hypoglycemia. ? Continue to monitor blood glucose as instructed. Follow nutrition guidelines provided. Report any discomfort promptly to health care provider. ?Stay well-hydrated. You can bathe ,shower, swim and exercise while wearing the glucose sensor. Do not submerge glucose sensor in water for more than 30 minutes. Patient will follow-up in 10 days with Diabetes Education nurse Coding Level of Care Code Est Pt Level 1 (86547) Diagnoses Type 2 diabetes mellitus with stage 3a chronic kidney disease, with long-term current use of insulin E11.22; N18.31; Z79.4 Diabetes mellitus type: type 2 Diabetes mellitus ferry terminal supervisor insulin use: with ferry terminal supervisor use Diabetes mellitus complication status: with kidney complications Diabetes mellitus complication detail: with chronic kidney disease Chronic kidney disease stage: stage 3 (moderate) Chronic kidney disease stage 3 subtype: stage 3a (GFR 45-59)
== END 2025-01-16 09:57 | disposition home or self-care (01) ==
PROVIDERS: PCP Internal Medicine; Visit Provider Registered Nurse Diabetes Educator
DX: E11.22 Type 2 diabetes mellitus with diabetic chronic kidney disease (principal); N18.31 Chronic kidney disease, stage 3a; Z79.4 Long term (current) use of insulin

== ENCOUNTER 2025-01-16 08:54 | Outpatient (AMB) | payer MEDICARE, OTHER, SELFPAY ==
--- OUTSIDE RECORDS SUMMARY | 2025-01-16 09:35 | XMS_ITS ---
Author Organization [facility] Address [address] [place] [phone] Care Team Providers Care Airplane Dispatch Clerk Name Role Phone Fausto AMTA, Dina Primary Care Provider Tan Martin Jr REASON FOR VISIT [facility] refill requested MEDICATIONS Medication SIG (Take, Route, Frequency, Duration) Notes Start Date End Date Status Pantoprazole Sodium 40 MG 1 tablet Orall y Once a day for 30 days 04/07/2023 Active Encounters Encounter Location Date Provider Diagnosis [facility] [address] [facility] [address] [place] [phone] 12/24/2023 Tan Chauhan Jr Gastroesophageal reflux disease, [...]
--- OUTSIDE RECORDS SUMMARY | 2025-01-16 09:35 | XMS_ITS | Clinical Summary ---
Author Organization [facility] Address [address] [phone] Phone Care Team Providers Care Wheat Grower Name Role Phone Dina Lambert MD Primary Care Provider [phone] Allergies No known active allergies Medications Insulin [...] Office Visit [facility] [address] [phone] Lauro Zacarias MD Stage 3 chronic kidney disease, not otherwise specified (HCC) (Primary Dx); Hypertension; Type 2 diabetes mellitus with diabetic chronic kidney disease (HCC); Other proteinuria 10/17/2024 Orders Only [facility] [address] [phone] Provider, MD Malaika from Last 3 Months [...] Office Visit [facility] [phone] Lauro Zacarias MD [address] [phone] Health Maintenance Due Date Last [...] to complete this topic Insurance MEDICARE MEDICARE [facility] Care Teams Wheat Grower Relationship Specialty Start Date End Date Dina Lambert MD [address] [place] [address], [address] [place] [address] PCP - General Internal Medicine 03/29/24
--- OUTSIDE RECORDS SUMMARY | 2025-01-16 09:36 | XMS_ITS | Patient Health Record ---
Author Organization [facility] Address [address] [place] [phone] Care Team Providers Care College Intern Name Role Phone Fausto MATA, Dina Primary [...] Esophageal reflux (K21.9) Active confirmed Esophageal reflux (500402733) Problem Change in bowel movement (R19.8) Active confirmed 52284497 Problem Gastroesophageal reflux disease, unspecified whether esophagitis present (K21.9) Active confirmed [id number] PLAN OF TREATMENT Future Test Test Name Order Date UPPER GI ENDOSCOPY 04/07/2023 COLONOSCOPY 04/07/2023 Insurance Providers Payer Name Payer Address Payer Phone Subscriber Number Group Number Insured Name Patient Relationship to Insured Coverage Start Date Coverage End Date MEDICARE OF [place] [address] [place] [address] [phone] [id number] RAJAN PARHAM Self - patient is the insured [facility] [address] [place] [phone] [id number] RAJAN PARHAM Self - patient is the insured MEDICAL (GENERAL) HISTORY Medical History History ICD Code Diabetes mellitus type 2 Chronic constipation Gastroesophageal reflux disease Urinary incontinence, stress Chronic kidney disease stage III Retinopathy Hypertension Hyperlipidemia Prostate cancer Surgical History Surgery Date(Month/Year) Artificial urinary sphincter placement Prostatectomy
[2025-01-16 10:50] VITALS: BMI 24.8
--- NOTE | 2025-01-16 10:50 | A.OFFVIS_ITS ---
VS Expanded 01/16/25 10:50 01/16/25 10:53 Height 5 ft 8 in 5 ft 8 in Weight 162 lb 14.746 oz 163 lb BMI 24.8 24.8 Intake Visit Reasons: T2DM Allergies No Known Allergies Allergy (Verified 01/15/25 11:24) Nutrition Presentation Details: Pt presents for MNT for T2DM food frequency fruits: 0-1/d vex/wk starches > 25 serving/d dairy 4+ fish 0-1x/wk beverages: water, juices etoh/smoking--- physical activity ADL BS Monitoring Most Recent Diabetes Results: No Data to Display NTF-Aukkiou-KqMarlen Equation Height: 5 ft 8 in Weight: 163 lb Resting Metabolic Rate: 1449.20 Calculated Activity Level: Mild Activity Calories Needed to Maintain Weight: 1992.65 Diagnosis Nutrition problem #1: food nutri know defi As related to (etiology) #1: diagnosis As evidenced by (sign/symptom) #1: knowledge deficit of diet PFSH Medical History (Updated 12/26/24 @ 12:29 by Linda Pacheco MD) HLD (hyperlipidemia) Diabetes mellitus Prostate cancer Elevated cholesterol HTN (hypertension) Retinopathy CKD (chronic kidney disease), stage III Stress Urinary incontinence GERD (gastroesophageal reflux disease) Chronic constipation Diabetes Surgical History Hx of colonoscopy Hx of esophagogastroduodenoscopy Hx of prostatectomy Status post implantation of artificial urinary sphincter Social History Patient Tobacco Use Status: Former Tobacco user Assessment & Plan Assessment & Plan (1) Diabetes: Code(s): E11.9 - Type 2 diabetes mellitus without complications Category: Medical Plan: Wt: 74 Kg ( 02/13 ) Est kcal needs as per MSJ: 2000 (40% carb, 30% protein/fat) Est fluid needs as per 25-30 ml/d: 2220 Est prot per day as per 1 g/kg bw: 74 Recommend fiber intake : 8-10 g per day and gradually increase to 25-28 g per day for women and 35-38 g for men or as tolerated Recommend sodium intake per day : less than 2000 mg Educated patient on: ( R = reviewed V = verbalizes understanding N/R = needs review N/A = not applicable * Food sources of carbohydrate, adequate serving sizes and its role in various health conditions: R * Differences between complex carbohydrates a simple carbohydrates, role of fiber in diet: R * Lean protein sources of foods: R * Differences between types of fats and role in diet (mono on saturated fat fatty acids, saturated fatty acids, trans fats): R V N/R * Food sources of sodium in salt and healthy modifications for heart health in kidney health: R V R/V * Vitamins and minerals: R V N/R * Healthy plate method concept: R V N/R * Physical activity: Benefits a precaution: R V N/R Patient Instructions: Follow healthy plate method at dinner Have an apple with peanut butter as snack o r yogurt with nuts Choose low sugar foods, reducing on total sugar intake see meal ideas Coding Level of Care Code Nutr Indiv Intake (99133) Diagnoses Diabetes E11.9 Time Spent (min) 30
[2025-01-25 08:56] VITALS: BMI 24.8
== END 2025-01-16 11:16 | disposition home or self-care (01) ==
PROVIDERS: PCP Internal Medicine; Visit Provider Dietitian, Registered
DX: E11.9 Type 2 diabetes mellitus without complications (principal)

== ENCOUNTER → 2025-01-16 08:54 | Outpatient (BNVA) | payer MEDICARE, OTHER, SELFPAY | PROVIDERS: PCP Internal Medicine; Visit Provider Dietitian, Registered | DX: E11.22 Type 2 diabetes mellitus with diabetic chronic kidney disease (principal); N18.31 Chronic kidney disease, stage 3a; Z71.3 Dietary counseling and surveillance; Z79.4 Long term (current) use of insulin | CPT/HCPCS: 97802; 99211 ==

== ENCOUNTER 2025-01-25 12:56 | Outpatient (AMB) | payer MEDICARE, OTHER, SELFPAY ==
--- NOTE | 2025-01-25 13:21 | MHC.AMDMED ---
Intake Intake Visit Reasons: 30 min Entry Tech Required: No Accompanied by: Spouse Allergies No Known Allergies Allergy (Verified 01/15/25 11:24) HPI Comprehensive Diabetes Asmnt Most Recent Diabetes Results: No Data to Display [facility] Medical History (Updated 12/26/24 @ 12:29 by Linda Pacheco MD) HLD (hyperlipidemia) Diabetes mellitus Prostate cancer Elevated cholesterol HTN (hypertension) Retinopathy CKD (chronic kidney disease), stage III Stress Urinary incontinence GERD (gastroesophageal reflux disease) Chronic constipation Diabetes Surgical History Hx of colonoscopy Hx of esophagogastroduodenoscopy Hx of prostatectomy Status post implantation of artificial urinary sphincter Social History Patient Tobacco Use Status: Former Tobacco user Assessment & Plan Assessment & Plan (1) Diabetes mellitus: Code(s): E11.9 - Type 2 diabetes mellitus without complications Qualifiers: Diabetes mellitus type: type 2 Diabetes mellitus long term care administrator insulin use: with longterm use Diabetes mellitus complication status: with kidney complications Diabetes mellitus complication detail: with chronic kidney disease Chronic kidney disease stage: stage 3 (moderate) Chronic kidney disease stage 3 subtype: stage 3a (GFR 45-59) Qualified Code(s): E11.22 - Type 2 diabetes mellitus with diabetic chronic kidney disease; N18.31 - Chronic kidney disease, stage 3a; Z79.4 - shelter (current) use of insulin Plan: Diabetes self-management education and support participation record Assessment/scale: 1= needs instructed? 2= needs review? 3= comprehend keep point? 4= demonstrates understanding/ competent? NC= Not Covered Topics Learning Objective: Initial visit Initial or post srvc Initial or post srvc Initial or post srvc Initial or post srvc Initial or post srvc Post srvc Comments Pre Edu-assessment/plan Outcome or reassess Outcome or reassess Outcome or reassess Outcome or reassess Outcome or reassess Outcome or reassess Diabetes pathophysiology 1 3 Healthy eating 1 3 Being active 1 3 Taking medication 2 3 Monitoring glucose 1 3 Acute complication 1 Chronic complicated 2 Lifestyle and healthy coping 1 Diabetes distress in support 1 ?Diabetes pathophysiology: ?Defined diabetes med identify own type of diabetes; list 3 options for treating diabetes Healthy eating: ?Described effect of type, amount and ?timing of food on blood glucose; list 3 methods for planning meal Being active: ?State effect of exercise on blood glucose level Taking medication: ?State effect of diabetes medications on diabetes; name diabetes medications taking, action and side effects Monitoring glucose: ?Identify recommended blood glucose targets and personal target Acute complication: ?List symptoms and treatment of hyper and hypoglycemia, DKA, sick day guidelines and guidelines for severe weather or situations of crisis and diabetes supply manage Chronic complication: ?To find the relationship of blood glucose levels to long-term complications of diabetes in screening and preventative measures Lifestyle and healthy coping: ?Described lifestyle and healthy coping strategies to rule out diabetes self-management Diabetes to stress and support: ?Recognize Diabetes to stress and be able to identified support options Patient Assessment patient has started Humalog 5 units before supper Continues taking Basaglar 40 units daily Jardiance 25 mg daily Ozempic 2 mg weekly Has worn a Dexcom G7 sensor for the last 10 days is here today for CGM review Learning objectives: The patient was provided with verbal and written education on the following topics as outlined below. The patient met all learning objectives and was able to verbalize understanding and provide teach back of education topics discussed . The patient was provided with the opportunity to ask questions and all questions were answered. What is Diabetes? Pathophysiology How the body produces and uses insulin Identify type of DM Risk factors Signs of Diabetes Brief overview of Diabetes Management Monitoring blood sugar Following a meal plan Regular exercise Maintaining a healthy weight Taking medication as needed Members of the care team (PCP, RN, MA, RD, CDE, specialist managers) Blood glucose monitoring When/how often to test Target blood sugar ranges Average glucose for the past 10 days 227 mg/dL Patient above target 62% At target 38% Below target 0% Introduction to Nutrition Importance of healthy diet in managing DM Diet is personalized to individual preference Review patient?s regular diet/food preferences Who prepares meals/does food shopping/ Dining out?/ Barriers? How diet effects glucose Eating 3 balanced meals a day with small, healthy snacks between meals Review food groups Carbohydrates: What is a carbohydrate/Which food/food groups are considered carbohydrates Effect of carbohydrates on blood glucose Portion sizes Reading food labels Basic carb counting (if applicable per nursing assessment) Plate method Meal planning Recommendations: Follow plate method, consistent carbs and read nutritional labels. Smart Goal Assessment: When glucose levels are above 250mg/dL, patient will increase physical activity, and drink plenty of non carbohydrate fluids Pt met goal less than 25% Continue Smart Goal:When glucose levels are above 250mg/dL, patient will increase physical activity, and drink plenty of non carbohydrate fluids between now and next visit Educational Materials: The patient was provided with the following written educational materials: Planning Healthy Meals, Handout Patient Response to instructions: Comprehension of Instructions: Fair Readiness to make changes: Contemplation How confident they feel about making changes: Positive Portions of this note were created using voice recognition software, please excuse any words or phrases that may have been misinterpreted. Patient Instructions: Include regular daily activity. ADA recommends 30 minutes of exercise 5 days a week. Weight loss talk to PCP or Bar Machine Operator before starting new plan. Test blood sugar as directed; Fasting and 2hpp largest meal. Watch trends in results. Utilize results and to assess how food, physical activity and medications affect blood sugar results. Bring glucometer or CGM to next visit. Be knowledgeable about diabetes medication, its action, side effects, efficacy, toxicity, prescribed dosage, appropriate timing and frequency of administration, effect of missed and delayed doses and instructions for storage, travel and safety. Problem solving techniques to monitor hypo/hyperglycemia episodes and treatments. Reduce risk reduction behaviors, smoking cessation, regular eye, foot and dental examinations. Follow Up with Diabetes Education nurse in 2 months Coding Level of Care Code Est Pt Level 1 (01322) Diagnoses Type 2 diabetes mellitus with stage 3a chronic kidney disease, with long-term current use of insulin E11.22; N18.31; Z79.4 Diabetes mellitus type: type 2 Diabetes mellitus long term care administrator insulin use: with long term care administrator use Diabetes mellitus complication status: with kidney complications Diabetes mellitus complication detail: with chronic kidney disease Chronic kidney disease stage: stage 3 (moderate) Chronic kidney disease stage 3 subtype: stage 3a (GFR 45-59)
--- OUTSIDE RECORDS SUMMARY | 2025-01-25 15:36 | XMS_ITS | Clinical Summary ---
Author Organization [facility] Address [address] [phone] Phone Care Team Providers Care Trapper Animal Name Role Phone Dina Lambert MD Primary Care Provider [phone] Allergies No known active allergies Medications Insulin [...] Office Visit [facility] [address] [phone] Lauro Zacarias MD Stage 3 chronic kidney disease, not otherwise specified (HCC) (Primary Dx); Hypertension; Type 2 diabetes mellitus with diabetic chronic kidney disease (HCC); Other proteinuria from Last 3 Months Immunizations Name Administration [...] Office Visit [facility] [address] [phone] Lauro Zacarias MD [address] [phone] Health Maintenance Due Date Last [...] to complete this topic Insurance MEDICARE MEDICARE [facility] Care Teams Trapper Animal Relationship Specialty Start Date End Date Dina Lambert MD [address] [place] [address], [address] [place] [address] PCP - General Internal Medicine 03/29/24
--- OUTSIDE RECORDS SUMMARY | 2025-01-25 15:36 | XMS_ITS ---
Author Organization [facility] Address [address] [place] [phone] Care Team Providers Care Inspector Metal Fabricating Name Role Phone Fausto MATA, Dina Primary Care Provider Tan Martin Jr REASON FOR VISIT [facility] refill requested Medications Medication SIG (Take, Route, Frequency, Duration) Notes Start Date End Date Status Pantoprazole Sodium 40 MG 1 tablet Orall y Once a day for 30 days 04/07/2023 Active Encounters Encounter Location Date Provider Diagnosis [facility] [address] [facility] [address] [place] [phone] 12/24/2023 Tan Chauhan Jr Gastroesophageal reflux disease, unspecified whether esophagitis present K21.9 Assessments Encounter Date Diagnosis (ICD Code) Assessment Notes Treatment Notes Treatment Clinical Notes Section Notes 12/24/2023 Gastroesophageal reflux disease, unspecified whether esophagitis present (ICD-10 - K21.9) Plan Of Treatment Medication Medication Name Sig Start Date Stop Date Notes Pantoprazole Sodium 40 MG 1 tablet Orall y Once a day for 30 days 04/07/2023 Progress Notes * RAJAN KRAMERDOB:[birth year] (73 yo M)Acc No.[id number]:12/24/2023 Patient:?RAJAN KRAMER :1950???Age:73 Y???Sex:Male Address:[address] [place] [address], [id number] * Refills? Refill Pantoprazole Sodium Tablet Delayed Release, 40 MG, Orally, 30, 1 tablet, Once a day, 30 days, Refills=6 * true * Date:? Generated for Jayshree mcdaniels/Rose Marie/Radha on:?01/25/2025 03:36 PM EST
--- OUTSIDE RECORDS SUMMARY | 2025-01-25 15:36 | XMS_ITS | Patient Health Record ---
Author Organization [facility] Address [address] [place] [phone] Care Team Providers Care Spooler Rubber Strand Name Role Phone Fausto MATA, Dina Primary Care Provider Tan Martin Jr Unavailable Allergies Allergen (clinical drug ingredient) Drug/Non Drug Allergy documented on EMR Reaction Allergy Type Onset Date Status hayfever (uncoded) Unknown Allergy A ctive Reason For Referral No Information Medications Medication SIG (Take, Route, Frequency, Duration) [...] LAX 17 GM/SCOOP as directed Orally Active Immunizations Vaccine Route Administration Date Status Comme nts Influenza Unknown 09/08/2022 Administered Social History Tobacco Use: Social History Observation Description Date Details (start date - stop date) Never Smoker NA - NA Tobacco Use/Smoking Question Answer Notes Patient is [...] Never (0 point) Points 2 Interpretation Negative Problems Problem Type SNOMED Code ICD Code Onset Dates Problem Status W/U Status Risk Notes Problem Esophageal reflux (742901986) Esophageal reflux (K21.9) Active confirmed Problem 82003353 Change in bowel movement (R19.8) Active confirmed Problem [id number] Gastroesophageal reflux disease, unspecified whether esophagitis present (K21.9) Active confirmed Plan Of Treatment Future Test Test Name Order Date UPPER GI ENDOSCOPY 04/07/2023 COLONOSCOPY 04/07/2023 Insurance Providers Payer Name Payer Address Payer Phone Subscriber Number Group Number Insured Name Patient Relationship to Insured Coverage Start Date Coverage End Date MEDICARE OF [place] [address] [place] [address] [phone] [id number] RAJAN PARHAM Self - patient is the insured [facility] [address] [place] [phone] [id number] RAJAN PARHAM Self - patient is the insured Medical (General) History Medical History History ICD Code Diabetes mellitus type 2 Chronic constipation Gastroesophageal reflux disease Urinary incontinence, stress Chronic kidney disease stage III Retinopathy Hypertension Hyperlipidemia Prostate cancer Surgical History Surgery Date(Month/Year) Artificial urinary sphincter placement Prostatectomy
== END 2025-01-25 13:24 | disposition home or self-care (01) ==
PROVIDERS: PCP Internal Medicine; Visit Provider Registered Nurse Diabetes Educator
DX: E11.22 Type 2 diabetes mellitus with diabetic chronic kidney disease (principal); N18.31 Chronic kidney disease, stage 3a; Z79.4 Long term (current) use of insulin

== ENCOUNTER → 2025-01-25 12:56 | Outpatient (BNVA) | payer MEDICARE, OTHER, SELFPAY | PROVIDERS: PCP Internal Medicine; Visit Provider Registered Nurse Diabetes Educator | DX: E11.22 Type 2 diabetes mellitus with diabetic chronic kidney disease (principal); N18.31 Chronic kidney disease, stage 3a; Z79.2 Long term (current) use of antibiotics | CPT/HCPCS: 99211 ==

== ENCOUNTER 2025-02-12 11:27 | Outpatient (AMB) | payer MEDICARE, OTHER, SELFPAY ==
--- NOTE | 2025-02-12 11:30 | A.OFFVIS_ITS ---
Vital Signs 3 02/12/25 11:34 Height 5 ft 8 in Weight 164 lb 10.965 oz BMI 25.0 BP 110/52 L Pulse 68 Pulse Source Pulse Oximeter Pulse Oximetry (%) 99 Oxygen Delivery Method Room Air Intake Visit Reasons: T2DM Intake Note: Patient present today for Type 2 Diabetes Mellitus Last Diabetic eye exam:08/2024 Last Podiatry Visit: NEEDS ONE Random Glucose: mg/dl HgA1C: 10.2% 12/26/24 Allergies No Known Allergies Allergy (Verified 02/12/25 11:35) Medication List - Last Reconciled 02/12/25 by Linda Pacheco MD blood-glucose meter,continuous (Dexcom G7 Frame Expander) As directed blood-glucose sensor (Dexcom G7 Sensor device) As directed every 10 days cholecalciferol (vitamin D3) (Vitamin D3) 50 mcg PO DAILY diltiazem HCl CD 180 mg PO DAILY empagliflozin (Jardiance) 25 mg PO DAILY glucose (Dex4 Glucose) 4 grams PO Q15M PRN insulin glargine (Basaglar KwikPen U-100 Insulin) 40 units (0.4 mL) subcut QAM insulin lispro (Humalog KwikPen (U-100) Insulin) 10 units subcut DAILY isosorbide mononitrate ER 30 mg PO DAILY omeprazole 20 mg PO BID pen needle, diabetic As directed to inject insulin twice a day polyethylene glycol 3350 (Miralax) 17 grams PO DAILY semaglutide (Ozempic) 2 mg (0.75 mL) subcut QWEEK sennosides (senna) 8.6 mg PO BID PRN simvastatin 80 mg PO DAILY HPI Comments Details: 74-year-old male here today for follow up of type 2 diabetes mellitus with long- term insulin use with complications of CKD stage 2, CAD, hyperlipidemia, hypertension, retinopathy. Here today with Sina . last seen 01/15/25 History of diabetes Diagnosed at the age of late 20s. Family history Brother: Type 2 DM no one with Type 1 DM Prior therapy: Has been on insulin for over 10 years Has been on OZempic for many years as well Jardiance started sometime early 2023 Previously has tried Trulicity Current regimen: Ozempic 2 mg weekly increased from 1 mg 12/26/24 Jardiance 25 mg daily Basagalar 40 units daily in AM Humalog 10 units pre lunch and dinner Reports good adherence never misses medication Dexcom G6 CGM downloaded for the past 14 days which shows average glucose 173 G mi 7.4% Time active 86% Standard deviation 60 mg/dL Coefficient of variation 34.6% In target range 56% High 32% Very high 11% 1% lows 0% very low Overall pattern interpretation shows that blood sugars are much improved since going up on Humalog, he has an inconsistent eating pattern, I started him on Humalog prior to to heaviest meals of the day but sometimes he will also have breakfast on the heavier side and then there are few days when he is not eating as much which has resulted in a few lows as well. Random Bg denied checking today A1c POC 12/26/24 10.2%. A1c lab 01/26/25 10.7 % Does endorse symptoms of hyperglycemia including polyphagia, polyuria, polydipsia. Vaccines:Flu shot July 2024, Pneumoccocal vaccine , no booster for COVID ,but vaccinated initially Complications Eye exam: Last eye exam was 06/2024, has retinopathy , bad report last visit . Neuropathy: none , podiatry referral placed Kidney disease: Follows with Nephrology Dr. Tom Green, [facility] in [place] , CKD stage 2-3 03/29/2024: Albumin/creatinine ratio 164 Urine albumin 102 0.6 EGFR 40 Creatinine 1.74 Macrovascular complications:has CAD? , has has TIAs in the past Statin:simvasatin 80 mg daily , 05/2024: LDL 75 mg per day ABHINAV/ARB: no ABHINAV /ARB Exercise: Walks in summer, takes the dog out not much more Has a appointments with CDE and automatic lathe setter Diet control: never seen automatic lathe setter 7-8Am : cereal or indonesian muffin snacks salsa with rackers or chips Lunch 11-1130 sandwich with tuna or salami Snacks salsa with chips Dinner : spaghetti No dessert [place] water with some sugar Physical exam General: sitting comfortably in no acute distress HEENT: normocephalic/atraumatic, Neck: supple, symmetrical Cardiac: normal heart sounds Pulm: normal breath sounds B/L, no added breath sounds Abd: not distended, no tenderness Extremities: no edema, no signs of myxedema Neuro: AAO x3, Speech: normal, no facial droop, moving all 4 extremities [facility] Medical History (Updated 12/26/24 @ 12:29 by Linda Pacheco MD) HLD (hyperlipidemia) Diabetes mellitus Prostate cancer Elevated cholesterol HTN (hypertension) Retinopathy CKD (chronic kidney disease), stage III Stress Urinary incontinence GERD (gastroesophageal reflux disease) Chronic constipation Diabetes Surgical History Hx of colonoscopy Hx of esophagogastroduodenoscopy Hx of prostatectomy Status post implantation of artificial urinary sphincter Social History Patient Tobacco Use Status: Former Tobacco user Physical Exam Vital Signs: BMI result Body Mass Index 25.0 Office Procedures Glucose Monitoring Details Details: see [facility] [address] - Glucose monitoring, continuous-physician I&R Procedure code (CPT) selection complete Assessment & Plan Assessment & Plan (1) Diabetes mellitus: Code(s): E11.9 - Type 2 diabetes mellitus without complications Category: Medical Qualifiers: Diabetes mellitus type: type 2 Diabetes mellitus press tender long goods insulin use: with press tender long goods use Diabetes mellitus complication status: with kidney complications Diabetes mellitus complication detail: with chronic kidney disease Chronic kidney disease stage: stage 3 (moderate) Chronic kidney disease stage 3 subtype: stage 3a (GFR 45-59) Qualified Code(s): E11.22 - Type 2 diabetes mellitus with diabetic chronic kidney disease; N18.31 - Chronic kidney disease, stage 3a; Z79.4 - group home (current) use of insulin Plan: 74-year-old male who was diagnosed with type 2 diabetes mellitus when he was in his late 20s, who is currently on long-term insulin with complications of CKD stage 2/3A, microalbuminuria, retinopathy, CAD, TIA. A1c 01/26/2025 10.7%. However since we have increased his mealtime insulin on 01/29/2025, CGM data downloaded for the past 2 weeks which shows much improved readings with the gym of 7.4%, and he is in target range 56% of the time. Obviously there is much room for improvement. Overall pattern interpretation shows that blood sugars are much improved since going up on Humalog, he has an inconsistent eating pattern, I started him on Humalog prior to to heaviest meals of the day but sometimes he will also have breakfast on the heavier side and then there are few days when he is not eating as much which has resulted in a few lows as well. Plan: -continue Ozempic to 2 mg weekly -continue Basaglar 40 units daily -Take 6 units of humalog pre breakfast if you have a breakfast Take 10 units of humalog pre lunch and dinner , 6-8 units if eating half or less of the meal -continue Jardiance 25 mg daily -discussed importance of verifying a low blood sugar with a his fingerstick -hypoglycemia education provided -discussed importance of lowering blood sugars and risks of hyperglycemia -follow up in 8 weeks -has follow up for diabetes education -nutrition appointment coming up, he has a very poor understanding of what carbs are in to count carbs which is why he is also not consistent with a his meals and it is difficult to adjust his pre meal insulin -up-to-date with eye visit, has a history of retinopathy, follows with Ophthalmology -lipid panel, urine microalbumin, CMP, C-peptide and sharifa ordered to be done prior to next visit, I had ordered these last visit, however they again only did CBC and A1c, blood work and urine test ordered again Given early age of onset of type 2 diabetes, plus uncontrolled diabetes, we also checking checking antibodies and a C-peptide (2) HLD (hyperlipidemia): Code(s): E78.5 - Hyperlipidemia, unspecified Category: Medical Qualifiers: Hyperlipidemia type: mixed hyperlipidemia Qualified Code(s): E78.2 - Mixed hyperlipidemia Plan: On simvastatin 80 mg daily Last LDL from May 2024 was 75 mg/dL, goal LDL less than 70 mg/dL Plan: -repeat lipid panel ordered last visit -continue simvastatin 80 mg daily Plan I spent 30 minutes in reviewing the record, seeing the patient and documenting in the medical record. Orders: Orders 2 Comprehensive Met. Panel Today E11.22 - Type 2 diabetes mellitus with diabetic chronic kidney disease, E78.2 - Mixed hyperlipidemia, N18.31 - Chronic kidney disease, stage 3a, Z79.4 - terminal worker (current) use of insulin AMB Glucose Monitoring Today E11.22 - Type 2 diabetes mellitus with diabetic chronic kidney disease, N18.31 - Chronic kidney disease, stage 3a, Z79.4 - terminal worker (current) use of insulin Lipid Panel Today E11.22 - Type 2 diabetes mellitus with diabetic chronic kidney disease, E78.2 - Mixed hyperlipidemia, N18.31 - Chronic kidney disease, stage 3a, Z79.4 - terminal worker (current) use of insulin Microalbumin, Random (w Creat) Today E11.22 - Type 2 diabetes mellitus with diabetic chronic kidney disease, E78.2 - Mixed hyperlipidemia, N18.31 - Chronic kidney disease, stage 3a, Z79.4 - terminal worker (current) use of insulin C Peptide Today E11.22 - Type 2 diabetes mellitus with diabetic chronic kidney disease, N18.31 - Chronic kidney disease, stage 3a, Z79.4 - terminal worker (current) use of insulin Glutamic acid decarboxylase Ab Today E11.22 - Type 2 diabetes mellitus with diabetic chronic kidney disease, N18.31 - Chronic kidney disease, stage 3a, Z79.4 - group home (current) use of insulin Referrals 2 Podiatry Referral E11.22 - Type 2 diabetes mellitus with diabetic chronic kidney disease, N18.31 - Chronic kidney disease, stage 3a, Z79.4 - group home (current) use of insulin Medications: Changed 2 From insulin lispro (Humalog KwikPen (U-100) Insulin) Daily 15 mins before supper 10 units subcut DAILY To insulin lispro (Humalog KwikPen (U-100) Insulin) subcutaneously 3 times a day; Daily 15 mins before supper Take 6 units before breakfast, 8-10 units before lunch and dinner 15 mL 3RF Patient Instructions: continue OZempic and Jardiance Continue basagalar 40 units in AM Take 6 units of humalog pre breakfast if you have a breakfast Take 10 units of humalog pre lunch and dinner , 6-8 units if eating half or less of the meal Rule of 15 Treatment for Hypoglycemia (Low blood sugar) If your blood glucose is low (70 and below)*, follow the steps below to treat: Eat or drink something from the list below equal to 15 grams of carbohydrate (carb). Rest for 15 minutes Re-check your blood glucose. If it is still low, (below 70), repeat step 1 above. ? If your next meal is more than an hour away, you will need to eat one carbohydrate choice as a snack to keep your blood glucose from going low again. ?If you can't figure out why you have low blood glucose, call your healthcare provider, as your medicine may need to be adjusted. ?Always carry something with you to treat an insulin reaction. Use food from the list below. ? Foods equal to One Carbohydrate Choice (15 grams of carbohydrate): 3 Glucose ?tablets or 4 Dextrose tablets 4 ounces of fruit juice 5-6 ounces (about 1/2 can) of regular soda such as Coke or Pepsi ? 7-8 gummy or regular Life Savers ? 1 Tbsp. of sugar or jelly NOTE: If your blood sugar is less than 50, double the portion above for a total of 30 gm. ?Carbohydrate. ? Follow meal plan of 45-60 g of consistent carbohydrates at 3 meals each day and 15 g of carbohydrate at 1-2 snacks each day. Do fasting blood work and urine Coding Level of Care Code Est Pt Level 4 (37366) Diagnoses Type 2 diabetes mellitus with stage 3a chronic kidney disease, with long-term current use of insulin E11.22; N18.31; Z79.4 Diabetes mellitus type: type 2 Diabetes mellitus press tender long goods insulin use: with detention use Diabetes mellitus complication status: with kidney complications Diabetes mellitus complication detail: with chronic kidney disease Chronic kidney disease stage: stage 3 (moderate) Chronic kidney disease stage 3 subtype: stage 3a (GFR 45-59) Mixed hyperlipidemia E78.2 Hyperlipidemia type: mixed hyperlipidemia CPT Codes Details - CPT: 26001 - Glucose monitoring, continuous-physician I&R ([id number]) Time Spent (min) 30
[2025-02-12 11:34] VITALS: BP 110/52; PULSE 68; O2SAT 99; BMI 25.0
== END 2025-02-12 12:13 | disposition home or self-care (01) ==
LOC: HO.ENCR 11:28
PROVIDERS: PCP Internal Medicine; Visit Provider Student in an Organized Health Care Education/Training Program
DX: E11.22 Type 2 diabetes mellitus with diabetic chronic kidney disease (principal); N18.31 Chronic kidney disease, stage 3a; Z79.4 Long term (current) use of insulin; E78.2 Mixed hyperlipidemia
CPT/HCPCS: 95251; 99214

== ENCOUNTER → 2025-02-12 11:27 | Outpatient (BNVA) | payer MEDICARE, OTHER, SELFPAY | PROVIDERS: PCP Internal Medicine; Visit Provider Student in an Organized Health Care Education/Training Program | DX: E11.22 Type 2 diabetes mellitus with diabetic chronic kidney disease (principal); N18.31 Chronic kidney disease, stage 3a; E78.2 Mixed hyperlipidemia; Z79.4 Long term (current) use of insulin | CPT/HCPCS: 99212 ==

== ENCOUNTER 2025-02-20 11:30 | Outpatient (AMB) | payer MEDICARE, OTHER, SELFPAY ==
--- NOTE | 2025-02-20 11:35 | A.OFFVIS_ITS ---
VS Expanded 02/20/25 11:40 03/05/25 23:10 Height 5 ft 8 in 5 ft 8 in Weight 164 lb 0.383 oz 164 lb BMI 24.9 24.9 Intake Visit Reasons: T2DM Allergies No Known Allergies Allergy (Verified 02/12/25 11:35) Nutrition Presentation Details: Pt presents for MNT for T2DM Food frequency fruit: 0-1/d ve/day dairy 3+/d starches > 20 fish 0-1/wk beverages: water, milk , juices physical activity: ADL etoh/smoking ---- mvi -no BS Monitoring Most Recent Diabetes Results: No Data to Display KVH-Isyhcbf-Sn.Jeor Equation Height: 5 ft 8 in Weight: 164 lb Resting Metabolic Rate: 1453.73 Calculated Activity Level: Mild Activity Calories Needed to Maintain Weight: Diagnosis Nutrition problem #1: altered nutrition labs As related to (etiology) #1: diagnosis As evidenced by (sign/symptom) #1: knowledge deficit of diet PFSH Medical History (Updated 12/26/24 @ 12:29 by Linda Pacheco MD) HLD (hyperlipidemia) Diabetes mellitus Prostate cancer Elevated cholesterol HTN (hypertension) Retinopathy CKD (chronic kidney disease), stage III Stress Urinary incontinence GERD (gastroesophageal reflux disease) Chronic constipation Diabetes Surgical History Hx of colonoscopy Hx of esophagogastroduodenoscopy Hx of prostatectomy Status post implantation of artificial urinary sphincter Social History Patient Tobacco Use Status: Former Tobacco user Assessment & Plan Assessment & Plan (1) Diabetes mellitus: Code(s): E11.9 - Type 2 diabetes mellitus without complications Category: Medical Qualifiers: Diabetes mellitus type: type 2 Diabetes mellitus senior living insulin use: with senior living use Diabetes mellitus complication status: with kidney complications Diabetes mellitus complication detail: with chronic kidney disease Chronic kidney disease stage: stage 3 (moderate) Chronic kidney disease stage 3 subtype: stage 3a (GFR 45-59) Qualified Code(s): E11.22 - Type 2 diabetes mellitus with diabetic chronic kidney disease; N18.31 - Chronic kidney disease, stage 3a; Z79.4 - oil heaterman (current) use of insulin Plan: Wt: 75 Kg (03/16 ) Est kcal needs as per MSJ: 2000 (40% carb, 30% protein/fat) Est fluid needs as per 25-30 ml/d: 2200 Est prot per day as per 1 g/kg bw: 75 Recommend fiber intake : 8-10 g per day and gradually increase to 25-28 g per day for women and 35-38 g for men or as tolerated Recommend sodium intake per day : less than 2000 mg Educated patient on: ( R = reviewed V = verbalizes understanding N/R = needs review N/A = not applicable * Food sources of carbohydrate, adequate serving sizes and its role in various health conditions: R * Differences between complex carbohydrates a simple carbohydrates, role of fiber in diet: R * Lean protein sources of foods: R V NR * Differences between types of fats and role in diet (mono on saturated fat fatty acids, saturated fatty acids, trans fats): R V N/R * Food sources of sodium in salt and healthy modifications for heart health in kidney health: R V R/V * Vitamins and minerals: R V N/R * Healthy plate method concept: R V N/R * Physical activity: Benefits a precaution: R V N/R * Hypoglycemia protocol (rule of 15): R V N/R * Dietary prevention of Hyperglycemia: R Patient Instructions: Choose low sugar beverages (water, fruit/herb infused water) with meals, follow healthy plate method see meal 1366-3412 timmy meal plan Coding Level of Care Code Nutr Indiv Intake (56405) Diagnoses Type 2 diabetes mellitus with stage 3a chronic kidney disease, with long-term current use of insulin E11.22; N18.31; Z79.4 Diabetes mellitus type: type 2 Diabetes mellitus senior living insulin use: with terminal clerk use Diabetes mellitus complication status: with kidney complications Diabetes mellitus complication detail: with chronic kidney disease Chronic kidney disease stage: stage 3 (moderate) Chronic kidney disease stage 3 subtype: stage 3a (GFR 45-59) Time Spent (min) 30
[2025-02-20 11:40] VITALS: BMI 24.9
--- OUTSIDE RECORDS SUMMARY | 2025-02-20 13:58 | XMS_ITS ---
Author Organization [facility] Address [address] [place] [phone] Care Team Providers Care Application Performance Engineer Name Role Phone Fausto MATA, Dina Primary Care Provider Tan Martin Jr REASON FOR VISIT [facility] refill requested Medications Medication SIG (Take, Route, Frequency, Duration) Notes Start Date End Date Status Pantoprazole Sodium 40 MG 1 tablet Orall y Once a day for 30 days 04/07/2023 Active Encounters Encounter Location Date Provider Diagnosis [facility] [address] [place] [phone] 12/24/2023 Tan Chauhan Jr Gastroesophageal reflux disease, [...] Notes * RAJAN KRAMERDOB:[birth year] (73 yo M)Acc No.[id number]:12/24/2023 Patient:?RAJAN KRAMER :1950???Age:73 Y???Sex:Male Address:[address] [place] [address], [address] * Refills? Refill Pantoprazole Sodium Tablet Delayed Release, 40 MG, Orally, 30, 1 tablet, Once a day, 30 days, Refills=6 * true * Date:? Generated for Jayshree mcdaniels/Rose Marie/Radha on:?02/20/2025 01:58 PM EDT
--- OUTSIDE RECORDS SUMMARY | 2025-02-20 13:58 | XMS_ITS | Clinical Summary ---
Author Organization [facility] Address [address] [phone] Phone Care Team Providers Care Cryptoanalysis Teacher Name Role Phone Dina Lambert MD Primary Care Provider [phone] Allergies No known active allergies Medications Insulin [...] Office Visit [facility] [address] [phone] Lauro Zacarias MD Stage 3 chronic kidney [...] Office Visit [facility] [address] [phone] Lauro Zacarias MD [address] [phone] Health Maintenance Due Date Last [...] to complete this topic Insurance MEDICARE MEDICARE [facility] Care Teams Cryptoanalysis Teacher Relationship Specialty Start Date End Date Dina Lambert MD [address] [place] [address], [address] [place] [address] PCP - General Internal Medicine 03/29/24
--- OUTSIDE RECORDS SUMMARY | 2025-02-20 13:59 | XMS_ITS | Patient Health Record ---
Author Organization [facility] Address [address] [place] [phone] Care Team Providers Care Tap Dancer Name Role Phone Fausto MATA, Dina Primary [...] W/U Status Risk Notes Problem Esophageal reflux (871685748) Esophageal reflux (K21.9) Active confirmed Problem [id number] Change in bowel movement (R19.8) Active confirmed Problem [id number] Gastroesophageal reflux disease, unspecified whether esophagitis present (K21.9) Active confirmed Plan Of Treatment Future Test Test Name Order Date UPPER GI ENDOSCOPY 04/07/2023 COLONOSCOPY 04/07/2023 Insurance Providers Payer Name Payer Address Payer Phone Subscriber Number Group Number Insured Name Patient Relationship to Insured Coverage Start Date Coverage End Date MEDICARE OF [place] [address] [place] [address] [id number] RAJAN PARHAM Self - patient is the insured [facility] [address] [place] [phone] [id number] RAJAN PARHAM Self - patient is the insured Medical (General) History Medical History History ICD Code Diabetes mellitus type 2 Chronic constipation Gastroesophageal reflux disease Urinary incontinence, stress Chronic kidney disease stage III Retinopathy Hypertension Hyperlipidemia Prostate cancer Surgical History Surgery Date(Month/Year) Artificial urinary sphincter placement Prostatectomy
[2025-03-05 23:10] VITALS: BMI 24.9
== END 2025-02-20 12:16 | disposition home or self-care (01) ==
LOC: HO.ENCR 11:31
PROVIDERS: PCP Internal Medicine; Visit Provider Dietitian, Registered
DX: E11.22 Type 2 diabetes mellitus with diabetic chronic kidney disease (principal); N18.31 Chronic kidney disease, stage 3a; Z79.4 Long term (current) use of insulin

== ENCOUNTER → 2025-02-20 11:30 | Outpatient (BNVA) | payer MEDICARE, OTHER, SELFPAY | PROVIDERS: PCP Internal Medicine; Visit Provider Dietitian, Registered | DX: E11.22 Type 2 diabetes mellitus with diabetic chronic kidney disease (principal); N18.31 Chronic kidney disease, stage 3a; Z71.3 Dietary counseling and surveillance; Z79.4 Long term (current) use of insulin | CPT/HCPCS: 97802 ==

== ENCOUNTER 2025-03-29 08:00 | Outpatient (REF) | payer MEDICARE, OTHER, SELFPAY ==
--- OUTSIDE RECORDS SUMMARY | 2025-03-29 08:02 | XMS_ITS | Clinical Summary ---
Author Organization [facility] Address [address] [phone] Phone Care Team Providers Care Regional Wildlife Agent Name Role Phone Dina Lambert MD Primary Care Provider [phone] Allergies No known active allergies Medications Insulin [...] to type 2 diabetes mellitus 0 03/28/2024 Immunizations Immunization Administration Dates Next Due Pneumococcal Polysaccharide 10/02/2015 [...] Office Visit [facility] [address] [phone] Lauro Zacarias MD [address] [phone] Health Maintenance Due Date Last Done Comments Pneumococcal Vaccine: 50+ Ye ars (2 of 2 - PCV) 10/02/2016 10/02/2015 Diabetes: Hemoglobin A1C 12/22/2020 Diabetes: Ophthalmology Exam 12/22/2020 Diabetes: Pedal Pulse Checked 12/22/2020 Diabetes: Sensory Foot Exam 12/22/2020 Diabetes: Visual Foot Exam 12/22/2020 Influenza Vaccine (Season Ended) 2025 Pneumococcal Vaccine: Peds ( 0 to 5 Years) and At-Risk Patients (6 to 49 Years) Discontinued 10/02/2015 Hepatitis B Vaccine Aged Out No longe r eligible based on patient's age to complete this topic Insurance Medicare Medicare [facility] Care Teams Regional Wildlife Agent Relationship Specialty Start Date End Date Dina Lambert MD [address] [place] [address], [address] [place] [address] PCP - General Internal Medicine 03/29/24
--- OUTSIDE RECORDS SUMMARY | 2025-03-29 08:03 | XMS_ITS ---
Author Organization [facility] Address [address] [place] [phone] Care Team Providers Care Text Transcriber Name Role Phone Fausto MATA, Dina Primary Care Provider Tan Martin Jr [phone] REASON FOR VISIT [facility] refill requested Medications Medication SIG (Take, Route, Frequency, Duration) Notes Start Date End Date Status Pantoprazole Sodium 40 MG 1 tablet Orall y Once a day for 30 days 04/07/2023 Active Encounters Encounter Location Date Provider Diagnosis [facility] [address] [facility] [address] [place] [phone] 12/24/2023 Tan Chauhan Jr Gastroesophageal reflux disease, [...] Notes * RAJAN KRAMERDOB:[birth year] (73 yo M)Acc No.[id number]:12/24/2023 Patient:?RAJAN KRAMER :1950???Age:73 Y???Sex:Male Address:[address] [place] [address], [address] * Refills? Refill Pantoprazole Sodium Tablet Delayed Release, 40 MG, Orally, 30, 1 tablet, Once a day, 30 days, Refills=6 * true * Date:? Generated for Jayshree mcdaniels/Rose Marie/Radha on:?03/29/2025 08:02 AM EDT
--- OUTSIDE RECORDS SUMMARY | 2025-03-29 08:03 | XMS_ITS | Patient Health Record ---
Author Organization [facility] Address [address] [place] [phone] Care Team Providers Care Delivery Clerk Name Role Phone Fausto MATA, Dina Primary [...] W/U Status Risk Notes Problem Esophageal reflux ([id number]) Esophageal reflux (K21.9) Active confirmed Problem [id number] Change in bowel movement (R19.8) Active confirmed Problem [id number] Gastroesophageal reflux disease, unspecified whether esophagitis present (K21.9) Active confirmed Plan Of Treatment Future Test Test Name Order Date UPPER GI ENDOSCOPY 04/07/2023 COLONOSCOPY 04/07/2023 Insurance Providers Payer Name Payer Address Payer Phone Subscriber Number Group Number Insured Name Patient Relationship to Insured Coverage Start Date Coverage End Date MED[place]ARE OF [place] [address] [place] [address] [id number] RAJAN PARHAM Self - patient is the insured [facility] [address] [place] [phone] [id number] RAJAN PARHAM Self - patient is the insured Medical (General) History Medical History History ICD Code Diabetes mellitus type 2 Chronic constipation Gastroesophageal reflux disease Urinary incontinence, stress Chronic kidney disease stage III Retinopathy Hypertension Hyperlipidemia Prostate cancer Surgical History Surgery Date(Month/Year) Artificial urinary sphincter placement Prostatectomy
[2025-03-29 10:25] LABS: Alanine Aminotransferase 19 U/L (0-40); Albumin Level 4.3 g/dL (3.5-5.0); Alkaline Phosphatase 74 U/L (39-117); Anion Gap 12 (12-20); Aspartate Amino Transferase 20 U/L (5-37); Bilirubin Total 0.5 mg/dL (0.0-1.0); Blood Urea Nitrogen 24 mg/dL (9-16); Calcium 9.5 mg/dL (8.4-10.2); Carbon Dioxide 22 mmol/L (22-29); Chloride 112 mmol/L (96-108); Cholesterol 131 mg/dL (<200); Estimated Glomerular Filt Rate 42; Glucose Random 102 mg/dL (60-115); HDL Cholesterol 43 mg/dL (>40); LDL Cholesterol Calculated 69 mg/dL (<100); Potassium 4.3 mmol/L (3.3-5.1); Sodium 142 mmol/L (135-145); Triglycerides 98 mg/dL (<150)
[2025-03-29 11:27] LABS: Creatinine Urine 62.42 mg/dL; Microalbum/Creatinine Ratio Ur 105.7 ug/mg cr (<30)
[2025-03-30 15:08] LABS: C Peptide 1.26 ng/mL (0.80-3.85)
[2025-04-03 21:48] LABS: Glutamic acid decarboxylase Ab <5 IU/mL (<5)
== END 2025-03-29 08:01 | disposition home or self-care (01) ==
LOC: HO.10HDL 08:00
PROVIDERS: Visit Provider Student in an Organized Health Care Education/Training Program
DX: E11.22 Type 2 diabetes mellitus with diabetic chronic kidney disease (principal); N18.31 Chronic kidney disease, stage 3a; Z79.4 Long term (current) use of insulin; E78.2 Mixed hyperlipidemia
CPT/HCPCS: 36415; 80053; 80061; 82043; 82570; 84681; 86341; 99211

== ENCOUNTER 2025-03-29 08:51 | Outpatient (AMB) | payer MEDICARE, OTHER, SELFPAY ==
--- NOTE | 2025-03-29 09:02 | A.OFFVIS_ITS ---
Intake Intake Visit Reasons: 60 min Finish Grinder Required: No Accompanied by: Self / Same As Patient Allergies No Known Allergies Allergy (Verified 02/12/25 11:35) HPI Comprehensive Diabetes Asmnt Most Recent Diabetes Results: 2 No Data to Display [facility] Medical History (Updated 12/26/24 @ 12:29 by Linda Pacheco MD) HLD (hyperlipidemia) Diabetes mellitus Prostate cancer Elevated cholesterol HTN (hypertension) Retinopathy CKD (chronic kidney disease), stage III Stress Urinary incontinence GERD (gastroesophageal reflux disease) Chronic constipation Diabetes Surgical History Hx of colonoscopy Hx of esophagogastroduodenoscopy Hx of prostatectomy Status post implantation of artificial urinary sphincter Social History Patient Tobacco Use Status: Former Tobacco user Assessment & Plan Assessment & Plan (1) Diabetes mellitus: Code(s): E11.9 - Type 2 diabetes mellitus without complications Qualifiers: Diabetes mellitus type: type 2 Diabetes mellitus terminal block assembler insulin use: with usp use Diabetes mellitus complication status: with kidney complications Diabetes mellitus complication detail: with chronic kidney disease Chronic kidney disease stage: stage 3 (moderate) Chronic kidney disease stage 3 subtype: stage 3a (GFR 45-59) Qualified Code(s): E11.22 - Type 2 diabetes mellitus with diabetic chronic kidney disease; N18.31 - Chronic kidney disease, stage 3a; Z79.4 - intermediate (current) use of insulin Plan: Diabetes self-management education and support participation record Assessment/scale: 1= needs instructed? 2= needs review? 3= comprehend keep point? 4= demonstrates understanding/ competent? NC= Not Covered Topics Learning Objective: Initial visit Initial or post srvc Initial or post srvc Initial or post srvc Initial or post srvc Initial or post srvc Post srvc Comments Pre Edu-assessment/plan Outcome or reassess O utcome or reassess Outcome or reassess Outcome or reassess Outcome or reassess Outcome or reassess Diabetes pathophysiology 1 3 Healthy eating 1 3 Being active 1 3 Taking medication 2 3 Monitoring glucose 1 3 Acute complication 1 3 Chronic complicated 2 3 Lifestyle and healthy coping 1 3 Diabetes distress in support 1 2 ?Diabetes pathophysiology: ?Defined diabetes med identify own type of diabetes; list 3 options for treating diabetes Healthy eating: ?Described effect of type, amount and ?timing of food on blood glucose; list 3 methods for planning meal Being active: ?State effect of exercise on blood glucose level Taking medication: ?State effect of diabetes medications on diabetes; name diabetes medications taking, action and side effects Monitoring glucose: ?Identify recommended blood glucose targets and personal target Acute complication: ?List symptoms and treatment of hyper and hypoglycemia, DKA, sick day guidelines and guidelines for severe weather or situations of crisis and diabetes supply manage Chronic complication: ?To find the relationship of blood glucose levels to long- term complications of diabetes in screening and preventative measures Lifestyle and healthy coping: ?Described lifestyle and healthy coping strategies to rule out diabetes self-management Diabetes to stress and support: ?Recognize Diabetes to stress and be able to identified support options Learning objectives: The patient was provided with verbal and written education on the following topics as outlined below. Patient questions/concerns, patient having episodes of hypoglycemia overnight and early in the a.m. Recommended to patient he decrease Basaglar from 40 units daily to 35 units daily until visit with Dr. Pacheco on 04/12/2025 If episodes of hypoglycemia continue contact wastewater process engineer or provider Patient's glucose have improved into target range, patient will be due for next A1c at visit with provider The patient met all learning objectives and was able to verbalize understanding and provide teach back of education topics discussed . The patient was provided with the opportunity to ask questions and all questions were answered. Topics covered in today?s session included: Insulin/Injectables (If applicable) * Storage/care of insulin?? * Injection sites? * Site rotation? * Onset, peak, duration * Drawing up insulin? * Injecting insulin/other injectables? * Sharps disposal Continuous blood glucose monitoring (if applicable) Hypoglycemia and Hyperglycemia * Signs and symptoms? * Causes?? * Treatment? * Preventing hypoglycemia? * When to seek medical attention Target Goals: * Blood glucose targets and how you feel when your blood glucose is in and out of your target ranges. * Monitoring and knowing your A1C. * What can make blood glucose go up and down and preventing high and low blood glucose. * Review of blood sugar targets in expected goal range and outside of expected goal range. * Problem solving and preventing hyper/hypoglycemia. * Sick day management of diabetes. * Using blood sugar results in decision making process in managing diabetes. ?Patient was receptive to information provided and participated in the discussion. Asked?appropriate questions and demonstrated good understanding of the topics discussed.? ? Educational Materials: The patient was provided with the following written educational materials: Target Goal handout Smart Goal Assessment:? When glucose levels are above 250mg/dL, patient will increase physical activity, and drink plenty of non carbohydrate fluids between now and next visit Pt met goal 75% New Smart Goal: Pt will treat hypoglycimia with rule of 15s Patient Response to instructions: Comprehension of Instructions: good Readiness to make changes:? action How confident they feel about making changes: Positive Portions of this note were created using voice recognition software, please excuse any words or phrases that may have been misinterpreted. Coding Level of Care Code Est Pt Level 1 (89878) Diagnoses Type 2 diabetes mellitus with stage 3a chronic kidney disease, with long-term current use of insulin E11.22; N18.31; Z79.4 Diabetes mellitus type: type 2 Diabetes mellitus usp insulin use: with terminal block assembler use Diabetes mellitus complication status: with kidney complications Diabetes mellitus complication detail: with chronic kidney disease Chronic kidney disease stage: stage 3 (moderate) Chronic kidney disease stage 3 subtype: stage 3a (GFR 45-59)
--- OUTSIDE RECORDS SUMMARY | 2025-03-29 09:13 | XMS_ITS | Clinical Summary ---
Author Organization [facility] Address [address] [address] Phone Care Team Providers Care Motor And Generator Brush Cutter Name Role Phone Dina Lambert MD Primary Care Provider [phone] Allergies No known active allergies Medications Insulin [...] Visit [facility] [address] [address] Lauro Zacarias MD [address] [address] Health Maintenance Due Date Last [...] to complete this topic Insurance Medicare Medicare [facility] Care Teams Motor And Generator Brush Cutter Relationship Specialty Start Date End Date Dina Lambert MD [address] [place] [address], [address] [place] [address] PCP - General Internal Medicine 03/29/24
== END 2025-03-29 09:44 | disposition home or self-care (01) ==
LOC: HO.ENCR 08:51
PROVIDERS: PCP Internal Medicine; Visit Provider Registered Nurse Diabetes Educator
DX: E11.22 Type 2 diabetes mellitus with diabetic chronic kidney disease (principal); N18.31 Chronic kidney disease, stage 3a; Z79.4 Long term (current) use of insulin

== ENCOUNTER 2025-04-12 11:14 | Outpatient (AMB) | payer MEDICARE, OTHER, SELFPAY ==
[2025-04-12 11:15] VITALS: BP 134/56; PULSE 68; O2SAT 95; BMI 24.5
--- NOTE | 2025-04-12 11:15 | MHC.OFFVIS ---
Vital Signs 04/12/25 11:15 Height 5 ft 8 in Weight 161 lb 2.526 oz BMI 24.5 BP 134/56 L Blood Pressure Location Rt brachial Position Sitting Pulse 68 Pulse Source Pulse Oximeter Pulse Oximetry (%) 95 Oxygen Delivery Method Room Air Intake Visit Reasons: T2DM Intake Note: Patient present today for Type 2 Diabetes Mellitus Last Diabetic eye exam: 08/2024 Last Podiatry Visit: Has upcoming appt in April. Random Glucose: 182 mg/dl HgA1C: 7.0% Balance Clerk Required: No Accompanied by: Self / Same As Patient Allergies No Known Allergies Allergy (Verified 04/12/25 11:20) HPI Comments Details: 74-year-old male here today for follow up of type 2 diabetes mellitus with long-term insulin use with complications of CKD stage 2, CAD, hyperlipidemia, hypertension, retinopathy. Here today with Sina . last seen 02/12/25 History of diabetes Diagnosed at the age of late 20s. Family history Brother: Type 2 DM no one with Type 1 DM Prior therapy: Has been on insulin for over 10 years Has been on OZempic for many years as well Jardiance started sometime early 2023 Previously has tried Trulicity Current regimen: Ozempic 2 mg weekly increased from 1 mg 12/26/24 Jardiance 25 mg daily Basagalar 35 units daily in AM Humalog 6 units with breakfast , 12 units pre lunch and dinner Reports good adherence never misses medication Dexcom G7 data downloaded from March 30 to April 12, 2025 Average glucose 162 mg/dL Time CGM active 96% G PR 7.2% Coefficient of variation 30.3% Standard deviation 4 9 mg/dL Time in range 69% Time running high I have 25% Time very high 6% Time and low 0% Overall pattern interpretation shows that blood sugars are much improved since going up on Humalog, fastings are much improved. He continues to have postprandial hyperglycemia. Random Bg denied checking today A1c POC 12/26/24 10.2%. A1c lab 01/26/25 10.7 % Random Glucose: 182 mg/dl Does endorse symptoms of hyperglycemia including polyphagia, polyuria, polydipsia. Vaccines:Flu shot July 2024, Pneumoccocal vaccine , no booster for COVID ,but vaccinated initially Complications Eye exam: Last eye exam was 06/2024, has retinopathy , bad report last visit . Neuropathy: none , Last Podiatry Visit: Has upcoming appt in April. Kidney disease: Follows with Nephrology Dr. Tom Green [facility] [place] , CKD stage 2-3 03/29/2024: Albumin/creatinine ratio 164 improved to 105 03/29/2025 Macrovascular complications:has CAD? , has has TIAs in the past Statin:simvasatin 80 mg daily , 05/2024: LDL 75 mg per day, improved to 69 from March 2025 ABHINAV/ARB: no ABHINAV /ARB Exercise: Walks in summer, takes the dog out not much more Has a appointments with CDE and rangelands conservation laborer Diet control: never seen rangelands conservation laborer 7-8Am : cereal or croatian muffin snacks salsa with rackers or chips Lunch 11-1130 sandwich with tuna or salami Snacks salsa with chips Dinner : spaghetti No dessert [place] water with some sugar Physical exam General: sitting comfortably in no acute distress HEENT: normocephalic/atraumatic, Neck: supple, symmetrical Cardiac: normal heart sounds Pulm: normal breath sounds B/L, no added breath sounds Abd: not distended, no tenderness Extremities: no edema, no signs of myxedema Neuro: AAO x3, Speech: normal, no facial droop, moving all 4 extremities Foot exam: Intact sensation to monofilament, warm and well-perfused Laboratory Tests 12/26/24 12/26/24 01/15/25 11:13 12:56 11:26 Creatinine Estimated GFR Glucose (Clinic) 169 H 144 H Hgb A1c (Clinic) 10.2 H C-Peptide Calcium AST ALT Albumin Triglycerides Cholesterol LDL Cholesterol, Calc HDL Cholesterol Urine Creatinine Urine Microalbumin Microalb/Creat Ratio 03/29/25 08:05 Creatinine 1.62 H Estimated GFR 42 Glucose (Clinic) Hgb A1c (Clinic) C-Peptide 1.26 Calcium 9.5 AST 20 ALT 19 Albumin 4.3 Triglycerides 98 Cholesterol 131 LDL Cholesterol, Calc 69 HDL Cholesterol 43 Urine Creatinine 62.42 Urine Microalbumin 66.0 Microalb/Creat Ratio 105.7 H [facility] Medical History (Updated 12/26/24 @ 12:29 by Linda Pacheco MD) HLD (hyperlipidemia) Diabetes mellitus Prostate cancer Elevated cholesterol HTN (hypertension) Retinopathy CKD (chronic kidney disease), stage III Stress Urinary incontinence GERD (gastroesophageal reflux disease) Chronic constipation Diabetes Surgical History Hx of colonoscopy Hx of esophagogastroduodenoscopy Hx of prostatectomy Status post implantation of artificial urinary sphincter Social History Patient Tobacco Use Status: Former Tobacco user Physical Exam Vital Signs: Last Vital Signs Pulse 68 04/12/25 11:15 BP 134/56 L 04/12/25 11:15 Pulse Ox 95 04/12/25 11:15 Oxygen Delivery Method Room Air 04/12/25 11:15 BMI result Body Mass Index 24.5 Office Procedures Glucose Monitoring Details Details: see HPI 90040 - Glucose monitoring, continuous-physician I&R Procedure code (CPT) selection complete Results AMB Hemoglobin A1c AMB Hemoglobin A1c 7.0 % Last Edit by ERASTO Germain on 04/12/25 11:57 Results Reviewed Results Reviewed: Laboratory Last Values Glucose (Clinic) 182 mg/dL (60-115) H 04/12/25 11:23 Assessment & Plan Assessment & Plan (1) Diabetes mellitus: Code(s): E11.9 - Type 2 diabetes mellitus without complications Category: Medical Qualifiers: Diabetes mellitus type: type 2 Diabetes mellitus custodial insulin use: with local company intermodal truck driver use Diabetes mellitus complication status: with kidney complications Diabetes mellitus complication detail: with chronic kidney disease Chronic kidney disease stage: stage 3 (moderate) Chronic kidney disease stage 3 subtype: stage 3a (GFR 45-59) Qualified Code(s): E11.22 - Type 2 diabetes mellitus with diabetic chronic kidney disease; N18.31 - Chronic kidney disease, stage 3a; Z79.4 - terminal manager (current) use of insulin Plan: 74-year-old male who was diagnosed with type 2 diabetes mellitus when he was in his late 20s, who is currently on long-term insulin with complications of CKD stage 2/3A, microalbuminuria, retinopathy, CAD, TIA. A1c 01/26/2025 10.7%. However since we have increased his mealtime insulin on 01/29/2025, CGM data downloaded for the past 2 weeks which shows much improved readings with the gmi of 7.2% , he is very close to goal now, I did encourage him to keep up with the walking and taking care of his diet. We will go up on his mealtime insulin as he continues to have postprandial hyperglycemia. Last 20 so Aleena our clinical trial educator, Basaglar was reduced from 40-35 units daily as he was having some low fasting numbers. O Plan: -continue Ozempic to 2 mg weekly -continue Basaglar 35 units daily -Take 6 units of humalog pre breakfast if you have a breakfast Increase Humalog prior to lunch and dinner to 12 units units of humalog pre lunch and dinner , 6-8 units if eating half or less of the meal -continue Jardiance 25 mg daily -discussed importance of verifying a low blood sugar with a his fingerstick -hypoglycemia education provided -discussed importance of lowering blood sugars and risks of hyperglycemia -follow up in 3 months -up-to-date with eye visit, has a history of retinopathy, follows with Ophthalmology (2) HLD (hyperlipidemia): Code(s): E78.5 - Hyperlipidemia, unspecified Category: Medical Qualifiers: Hyperlipidemia type: mixed hyperlipidemia Qualified Code(s): E78.2 - Mixed hyperlipidemia Plan: On simvastatin 80 mg daily Last LDL from May 2024 was 75 mg/dL, goal LDL less than 70 mg/dL , LDL now improved to 69 mg/dL which is within goal from March 2025. Plan: -continue simvastatin 80 mg daily Plan I spent 30 minutes in reviewing the record, seeing the patient and documenting in the medical record. Orders: Orders AMB Glucose Monitoring Today E11.22 - Type 2 diabetes mellitus with diabetic chronic kidney disease, N18.31 - Chronic kidney disease, stage 3a, Z79.4 - terminal manager (current) use of insulin AMB Hemoglobin A1c Today E11.22 - Type 2 diabetes mellitus with diabetic chronic kidney disease, N18.31 - Chronic kidney disease, stage 3a, Z13.9 - Encounter for screening, unspecified, Z79.4 - FPC (current) use of insulin Patient Instructions: Continue basagalar 35 units daily Continue humalog 6 units pre breakfast, increase to 12 units with lunch and dinner If you eat half a meal , at least take 6 to 8 units if not the full 12 units Walk 30 mins 5 days a week Coding Level of Care Code Est Pt Level 4 (14497) Diagnoses Type 2 diabetes mellitus with stage 3a chronic kidney disease, with long-term current use of insulin E11.22; N18.31; Z79.4 Diabetes mellitus type: type 2 Diabetes mellitus custodial insulin use: with local company intermodal truck driver use Diabetes mellitus complication status: with kidney complications Diabetes mellitus complication detail: with chronic kidney disease Chronic kidney disease stage: stage 3 (moderate) Chronic kidney disease stage 3 subtype: stage 3a (GFR 45-59) Mixed hyperlipidemia E78.2 Hyperlipidemia type: mixed hyperlipidemia CPT Codes Details - CPT: 09331 - Glucose monitoring, continuous-physician I&R ([id number]) Time Spent (min) 30
[2025-04-12 11:27] LABS: Glucose, Whole Blood 182 mg/dL (60-115)
--- OUTSIDE RECORDS SUMMARY | 2025-04-12 11:52 | XMS_ITS | Clinical Summary ---
Author Organization [facility] Address [address] [address] Phone Care Team Providers Care Consultant Technology Name Role Phone Dina Lambert MD Primary Care Provider [phone] Allergies No known active allergies Medications Insulin [...] and 1 tablet in the evening. Active Empagliflozin (Jardiance) 10 MG tablet Take 10 mg by mouth 1 (one) time each day in the morning 30 tablet 5 4 Active Additional Information Patient taking differently: 25 mgOral Every morning, Reported on 11/27/2024 dilTIAZem HCl ER 180 MG tablet sustained-relea se 24 hour Take 180 mg by mouth 8 Active sodium bicarbonate 650 MG tablet Take 1 tablet (650 mg total) by mouth in the morning and 1 tablet (650 mg total) in the evening and 1 tablet (650 mg total) before bedtime. 270 tablet 3 4 03/29/20 25 Active Problems Problem Noted Date Diagnosed Date [...] Visit [facility] [address] [address] Lauro Zacarias MD [address] [address] Health Maintenance Due Date Last [...] to complete this topic Insurance Medicare Medicare [facility] Care Teams Consultant Technology Relationship Specialty Start Date End Date Dina Lambert MD [address] [place] [address], [address] [place] [address] PCP - General Internal Medicine 03/29/24
--- OUTSIDE RECORDS SUMMARY | 2025-04-12 11:52 | XMS_ITS | Patient Health Record ---
Author Organization [facility] Address [address] [place] [phone] Care Team Providers Care Specialty Development Consultant Name Role Phone Fausto MATA, Dina Primary Care Provider Tan Martin Jr Unavailable [phone] Allergies Allergen (clinical drug ingredient) Drug/Non Drug [...] W/U Status Risk Notes Problem Esophageal reflux ([id number]) Esophageal reflux (K21.9) Active confirmed Problem [id number] Change in bowel movement (R19.8) Active confirmed Problem [id number] Gastroesophageal reflux disease, unspecified whether esophagitis present (K21.9) Active confirmed Plan Of Treatment Future Test Test Name Order Date UPPER GI ENDOSCOPY 04/07/2023 COLONOSCOPY 04/07/2023 Insurance Providers Payer Name Payer Address Payer Phone Subscriber Number Group Number Insured Name Patient Relationship to Insured Coverage Start Date Coverage End Date MEDICARE OF [place] [address] [place] [address] [id number] RAJAN PARHAM Self - patient is the insured [facility] [address] [place] [phone] [id number] RAJAN PARHAM Self - patient is the insured Medical (General) History Medical History History ICD Code Diabetes mellitus type 2 Chronic constipation Gastroesophageal reflux disease Urinary incontinence, stress Chronic kidney disease stage III Retinopathy Hypertension Hyperlipidemia Prostate cancer Surgical History Surgery Date(Month/Year) Artificial urinary sphincter placement Prostatectomy
--- OUTSIDE RECORDS SUMMARY | 2025-04-12 11:52 | XMS_ITS ---
Author Organization [facility] Address [address] [place] [phone] Care Team Providers Care Checker Stocker Name Role Phone Fausto MATA, Dina Primary Care Provider Tan Martin Jr REASON FOR VISIT [facility] refill requested Medications Medication SIG (Take, Route, Frequency, Duration) Notes Start Date End Date Status Pantoprazole Sodium 40 MG 1 tablet Orall y Once a day for 30 days 04/07/2023 Active Encounters Encounter Location Date Provider Diagnosis [facility] [address] [facility] [address] [place] [phone] 12/24/2023 Tan Chauhan Jr Gastroesophageal reflux disease, [...] Notes * RAJAN KRAMERDOB:[birth year] (73 yo M)Acc No.[id number]:12/24/2023 Patient:?RAJAN KRAMER :1950???Age:73 Y???Sex:Male Address:[address] [place] [address], [address] * Refills? Refill Pantoprazole Sodium Tablet Delayed Release, 40 MG, Orally, 30, 1 tablet, Once a day, 30 days, Refills=6 * true * Date:? Generated for Jayshree mcdaniels/Rose Marie/Radha on:?04/12/2025 11:52 AM EDT
== END 2025-04-12 11:45 | disposition home or self-care (01) ==
LOC: HO.ENCR 11:14
PROVIDERS: PCP Internal Medicine; Visit Provider Student in an Organized Health Care Education/Training Program
DX: E11.22 Type 2 diabetes mellitus with diabetic chronic kidney disease (principal); N18.31 Chronic kidney disease, stage 3a; Z79.4 Long term (current) use of insulin; E78.2 Mixed hyperlipidemia; Z13.9 Encounter for screening, unspecified
CPT/HCPCS: 95251; 99214

== ENCOUNTER → 2025-04-12 11:14 | Outpatient (BNVA) | payer MEDICARE, OTHER, SELFPAY | PROVIDERS: PCP Internal Medicine; Visit Provider Student in an Organized Health Care Education/Training Program | DX: E11.22 Type 2 diabetes mellitus with diabetic chronic kidney disease (principal); N18.31 Chronic kidney disease, stage 3a; E78.2 Mixed hyperlipidemia; Z79.4 Long term (current) use of insulin | CPT/HCPCS: 82947; 83036; 99212 ==

== ENCOUNTER 2025-05-22 10:05 | Outpatient (REF) | payer MEDICARE, OTHER, SELFPAY ==
--- OUTSIDE RECORDS SUMMARY | 2025-05-22 11:10 | XMS_ITS | Clinical Summary ---
Author Organization [facility] Address [address] [address] Phone Care Team Providers Care Singing Waiter Or Waitress Name Role Phone Dina Lambert MD Primary Care Provider [phone] Allergies No known active allergies Medications Insulin [...] 8 Active sodium bicarbonate 650 MG tablet TAKE 1 TABLET BY MOUTH IN THE MORNING, 1 TABLET IN THE EVENING, AND 1 TABLET BEFORE BEDTIME 270 tablet 3 5 Active Active Problems Problem Noted Date Diagnosed Date Chronic kidney disease stage 3 03/28/2024 Hypertensive disorder 03/28/2024 Hypomagnesemia 03/28/2024 Proteinuria 03/28/2024 Renal disorder due to type 2 diabetes mellitus 0 03/28/2024 Encounters Date Type Department Care Team Description 04/20/2025 Refill [facility] [address] [place] [address] Lauro Zacarias MD from Last 3 Months Immunizations Immunization Administration Dates Next Due Pneumococcal [...] Visit [facility] [address] [facility] [address] [place] [address] Lauro Zacarias MD [address] [facility] [address] [place] [address] Health Maintenance Due Date Last Done [...] to complete this topic Insurance Medicare Medicare [facility] Member Subscriber Plan / Payer (Ef fective 2018-Present) Name:Jose Ybarraraven Vences Relation to Subscriber:Self Name:David Ybarra Ru Payer ID:Not on file Type:Not on file Address: [place] [id number] Care Teams Singing Waiter Or Waitress Relationship Specialty Start Date End Date Dina Lambert MD [address] [place] [address], [address] [place] [address] PCP - General Internal Medicine 03/29/24
--- OUTSIDE RECORDS SUMMARY | 2025-05-22 11:10 | XMS_ITS | Patient Health Record ---
Author Organization [facility] Address [address] [place] [address] Care Team Providers Care Vocational Technical Education Director Name Role Phone Fausto MATA, Dina Primary Care Provider Tan Martin Jr Unavailable [phone] Allergies Allergen (clinical drug ingredient) Drug/Non [...] W/U Status Risk Notes Problem Esophageal reflux (969865950) Esophageal reflux (K21.9) Active confirmed Problem 55829983 Change in bowel movement (R19.8) Active confirmed Problem [id number] Gastroesophageal reflux disease, unspecified whether esophagitis present (K21.9) Active confirmed Plan Of Treatment Future Test Test Name Order Date UPPER GI ENDOSCOPY 04/07/2023 COLONOSCOPY 04/07/2023 Insurance Providers Payer Name Payer Address Payer Phone Subscriber Number Group Number Insured Name Patient Relationship to Insured Coverage Start Date Coverage End Date MEDICARE OF [place] [address] [place] [address] [id number] RAJAN PARHAM Self - patient is the insured [facility] [address] [place] [address] [id number] RAJAN PARHAM Self - patient is the insured Medical (General) History Medical History History ICD Code Diabetes mellitus type 2 Chronic constipation Gastroesophageal reflux disease Urinary incontinence, stress Chronic kidney disease stage III Retinopathy Hypertension Hyperlipidemia Prostate cancer Surgical History Surgery Date(Month/Year) Artificial urinary sphincter placement Prostatectomy
--- OUTSIDE RECORDS SUMMARY | 2025-05-22 11:10 | XMS_ITS | Patient Health Record ---
Author Organization [facility] [place] Address [address] [place] [address] Care Team Providers Care Director Life Insurance Name Role Phone Fausto MATA, Dina Primary Care Provider Grace Spears Unavailable [phone] Allergies No Known Allergies Results Component Value Reference Range Notes HEMOGLOBIN A1C (GLYCOHEMOGLO BIN) Reviewed date:05/03/2025 10:31:30 AM Interpretation: Performing Lab: Notes/Report: HEMOGLOBIN A1C % (HH) 7.8 Reason For Referral No Information Medications Medication SIG (Take, Route, Frequency, Duration) Notes Start Date End Date Status Omeprazole 20 MG TAKE 1 CAPSULE BY MO UTH DAILY Oral; Duration: 30 Days Active Isosorbide Mononitrate ER 30 MG TAKE 1 TABLET BY MOUTH EVERY DAY Oral; Duration: 90 Days Active Ozempic (2 MG/DOSE) 8 MG/3ML ADMINISTER 2 MG UNDER THE SKIN EVERY WEEK Subcutaneous; Duration: 56 Days Active Insulin Lispro (1 Unit Dial) 100 UNIT/ML Subcutaneous; Duration: 46 Days Active dilTIAZem HCl ER Coated Beads 180 MG TAKE 1 CAPSULE BY MOUTH ONCE DAILY Oral; Duration: 90 Days Active Basaglar KwikPen 100 UNIT/ML ADMINISTER 40 UNITS UNDER THE SKIN EVERY MORNING Subcutaneous; Duration: 35 Days Active Senna 8.6 MG TAKE 1 TABLET BY KARTHIK TH TWICE DAILY NEEDED Oral; Duration: 90 Days Active Simvastatin 80 MG TAKE 1 TABLET BY KARTHIK TH AT BEDTIME Oral; Duration: 90 Days Active Sodium Bicarbonate 650 MG Oral; Duration: 90 Days Active Salvador Aspirin 325 MG 1 tablet Orally Onc e a day Active Immunizations Vaccine Route Administration Date Status Comme nts Influenza Unknown 07/24/2024 Administered Social History Tobacco Use: Social History Observation Description Date Details (start date - stop date) Never Smoker NA - NA Tobacco use other than smoking: Question Answer Notes Are you an other tobacco user? Yes C igars Occasionally Tobacco Control (Standard) Question Answer Notes Tobacco use: Nonsmoker Additional Findings: Tobacco non-user Current no nsmoker AUDIT-C (Standard) Question Answer Notes Did you have a [...] (0 point) How often did you have six o r more drinks on one occasion in the past year? Never (0 point) Points 2 Interpretation Negative Problems Problem Type SNOMED Code ICD Code Onset Dates Problem Status W/U Status Risk Notes Problem Acquired hammer toe of right foot (5111154108405070 ) Other hammer toe(s) (acquired), right foot (M20.41) Active confirmed Problem Other hammer toe(s) (acquired), left foot (M20.42) Active confirmed Problem Polyneuropathy due to diabetes mellitus type I (249582652) Type 1 diabetes mellitus with diabetic polyneuropathy (E10.42) Active confirmed Problem Polyneuropathy due to type 2 diabetes mellitus (744630823) Type 2 diabetes mellitus with diabetic polyneuropathy (E11.42) Active confirmed Vital Signs Blood pressure diastolic 60 mm Hg 05/03/2025 Height 5ft 8in in 05/03/2025 Blood pressure systolic 130 mm Hg 05/03/2025 Weight 162 lbs lbs 05/03/2025 BMI 24.63 kg/m2 05/03/2025 Procedures Procedure Date Ordered Date Performed Result Body Sit e 96873-HBQQPPI NAIL, 6 OR MORE 05/03/2025 N/A 26836-LBMP SKIN LESIONS, 2 TO 4 05/03/2025 N/A Encounters Encounter Location Date Provider Diagnosis [facility] [address] [place] [address] 05/03/2025 Grace Mayer Type 2 diabetes mellitus with diabetic polyneuropathy E11.42 ; Tinea unguium B35.1 ; Other hammer toe(s) (acquired), right foot M20.41 and Other hammer toe(s) (acquired), left foot M20.42 Assessments Encounter Date Diagnosis (ICD Code) Assessment Notes Treatment Notes Treatment Clinical Notes Section Notes 05/03/2025 Type 2 diabetes mellitus with diabetic polyneuropathy (ICD-10 - E11.42) 05/03/2025 Tinea unguium (ICD-10 - B35.1) 05/03/2025 Other hammer toe(s) (acquired), right foot (ICD-10 - M20.41) Patient Educated with: DIABETIC FOOT CARE INSTRUCTIONS. pdf (DIABETIC FOOT CARE INSTRUCTIONS. pdf) 05/03/2025 Other hammer toe(s) (acquired), left foot (ICD-10 - M20.42) Plan Of Treatment Pending Test Test Name Order Date 71618-VGJVCGX NAIL, 6 OR MORE 05/03/2025 26520-UIAR SKIN LESIONS, 2 TO 4 05/03/20 25 Next Appt Details Provider Name:Grace sol, 05/06/2026 09:00:00 AM, [address] [place], [address], Insurance Providers Payer Name Payer Address Payer Phone Subscriber Number Group Number Insured Name Patient Relationship to Insured Coverage Start Date Coverage End Date Medicare National [employer] [address] [facility] [place] [address] [id number] David Raza i Self - patient is the insured [address] [facility] [address] [place] [address] [id number] David Raza i Self - patient is the insured 4 Medical (General) History Medical History History ICD Code Diabetic Kidney disease Surgical History Surgery Date(Month/Year) prostate surgery 2007
[2025-05-22 13:28] LABS: Platelet Count 277 X10*3/uL (160-400)
[2025-05-22 14:10] LABS: Parathyroid Hormone Intact 84.1 pg/mL (8.7-77.1)
[2025-05-22 14:20] LABS: Alanine Aminotransferase 22 U/L (0-40); Albumin Level 4.5 g/dL (3.5-5.0); Alkaline Phosphatase 86 U/L (39-117); Anion Gap 15 (12-20); Aspartate Amino Transferase 22 U/L (5-37); Blood Urea Nitrogen 32 mg/dL (9-16); Calcium 9.4 mg/dL (8.4-10.2); Carbon Dioxide 20 mmol/L (22-29); Chloride 110 mmol/L (96-108); Cholesterol 142 mg/dL (<200); Estimated Glomerular Filt Rate 34; HDL Cholesterol 49 mg/dL (>40); Potassium 4.7 mmol/L (3.3-5.1); Sodium 140 mmol/L (135-145); Total Protein 7.1 g/dL (6.5-8.0); Triglycerides 113 mg/dL (<150)
== END 2025-05-22 10:06 | disposition home or self-care (01) ==
LOC: HO.10HDL 10:05
PROVIDERS: Visit Provider Student in an Organized Health Care Education/Training Program
DX: E11.22 Type 2 diabetes mellitus with diabetic chronic kidney disease (principal); N18.31 Chronic kidney disease, stage 3a; Z79.4 Long term (current) use of insulin
CPT/HCPCS: 36415; 80053; 80061; 82306; 83970; 85049; 97803

== ENCOUNTER 2025-05-22 10:25 | Outpatient (AMB) | payer MEDICARE, OTHER, SELFPAY ==
[2025-05-22 10:45] VITALS: BMI 24.6
--- NOTE | 2025-05-22 10:45 | A.OFFVIS_ITS ---
VS Expanded 05/22/25 10:45 Height 5 ft 8 in Weight 162 lb 0.636 oz BMI 24.6 Intake Visit Reasons: T2DM Allergies No Known Allergies Allergy (Verified 04/12/25 11:20) Nutrition Presentation Details: Pt presents for MNT f/u for T2DM Pt reports doing well, has questions regarding diet modification to improve BG 14 d bg average 162 mg/dl , Pt had 1 out of 2 episode of low bg in the past 2 week, Pt reports confirming with finger stick, treated the true low BG episode by following rule of 15 Pt on 32 units of basaglar per day and Humalog 6 units in AM and 12 units at luncha nd at dinner , ozempic Typical meal B: 10 oz coffee with cream added and Indonesian muffin with butter in AM L: Sand,milk snack:crackers with cheese or fruit dinner: pasta/chicken/veg, water/milk constipation on and off (3 days with out BM) uses senna as rx by MD Today will review reducing caffeine and increasing riber rich foods BS Monitoring Most Recent Diabetes Results: Microalb/Creat Ratio, (<30) 105.7 ug/mg cr H 03/29/25 Cholesterol, (<200) 131 mg/dL 03/29/25 HDL Cholesterol, (>40) 43 mg/dL 03/29/25 Triglycerides, (<150) 98 mg/dL 03/29/25 Creatinine, (0.5-1.4) 1.62 mg/dL H 03/29/25 BUN, (9-16) 24 mg/dL H 03/29/25 Sodium, (135-145) 142 mmol/L 03/29/25 Potassium, (3.3-5.1) 4.3 mmol/L 03/29/25 Chloride, (96-108) 112 mmol/L H 03/29/25 Carbon Dioxide, (22-29) 22 mmol/L 03/29/25 Calcium, (8.4-10.2) 9.5 mg/dL 03/29/25 AST, (5-37) 20 U/L 03/29/25 ALT, (0-40) 19 U/L 03/29/25 Total Protein, (6.5-8.0) 7.0 g/dL 03/29/25 Albumin, (3.5-5.0) 4.3 g/dL 03/29/25 [facility] Medical History (Updated 12/26/24 @ 12:29 by Linda Pacheco MD) HLD (hyperlipidemia) Diabetes mellitus Prostate cancer Elevated cholesterol HTN (hypertension) Retinopathy CKD (chronic kidney disease), stage III Stress Urinary incontinence GERD (gastroesophageal reflux disease) Chronic constipation Diabetes Surgical History Hx of colonoscopy Hx of esophagogastroduodenoscopy Hx of prostatectomy Status post implantation of artificial urinary sphincter Social History Patient Tobacco Use Status: Former Tobacco user Assessment & Plan Assessment & Plan (1) Diabetes mellitus: Code(s): E11.9 - Type 2 diabetes mellitus without complications Category: Medical Qualifiers: Diabetes mellitus type: type 2 Diabetes mellitus buttermaker continuous churn insulin use: with buttermaker continuous churn use Diabetes mellitus complication status: with kidney complications Diabetes mellitus complication detail: with chronic kidney disease Chronic kidney disease stage: stage 3 (moderate) Chronic kidney disease stage 3 subtype: stage 3a (GFR 45-59) Qualified Code(s): E11.22 - Type 2 diabetes mellitus with diabetic chronic kidney disease; N18.31 - Chronic kidney disease, stage 3a; Z79.4 - group home (current) use of insulin Plan: Wt: 75 Kg (03/16 ) Est kcal needs as per MSJ: 2000 (40% carb, 30% protein/fat) Est fluid needs as per 25-30 ml/d: 2200 Est prot per day as per 1 g/kg bw: 75 Recommend fiber intake : 8-10 g per day and gradually increase to 25-28 g per day for women and 35-38 g for men or as tolerated Recommend sodium intake per day : less than 2000 mg Educated patient on: ( R = reviewed V = verbalizes understanding N/R = needs review N/A = not applicable * Food sources of carbohydrate, adequate serving sizes and its role in various health conditions: R * Differences between complex carbohydrates a simple carbohydrates, role of fiber in diet: R * Lean protein sources of foods: R V * Differences between types of fats and role in diet (mono on saturated fat fatty acids, saturated fatty acids, trans fats): R V N/R * Food sources of sodium in salt and healthy modifications for heart health in kidney health: R V R/V * Vitamins and minerals: R V N/R * Healthy plate method concept: R , V * Physical activity: Benefits a precaution: R V N/R * Hypoglycemia protocol (rule of 15): R V Pt verbalizes rule of 15 * Dietary prevention of Hyperglycemia: R Patient Instructions: Reduce on caffeine - consider switching to tea in AM Have water with meals and snacks include fish at least twice/week at dinner Coding Level of Care Code Nutr Indiv Subseq (65578) Diagnoses Type 2 diabetes mellitus with stage 3a chronic kidney disease, with long-term current use of insulin E11.22; N18.31; Z79.4 Diabetes mellitus type: type 2 Diabetes mellitus buttermaker continuous churn insulin use: with buttermaker continuous churn use Diabetes mellitus complication status: with kidney complications Diabetes mellitus complication detail: with chronic kidney disease Chronic kidney disease stage: stage 3 (moderate) Chronic kidney disease stage 3 subtype: stage 3a (GFR 45-59) Time Spent (min) 30
== END 2025-05-22 11:18 | disposition home or self-care (01) ==
LOC: HO.ENCR 10:25
PROVIDERS: PCP Internal Medicine; Visit Provider Dietitian, Registered
DX: E11.22 Type 2 diabetes mellitus with diabetic chronic kidney disease (principal); N18.31 Chronic kidney disease, stage 3a; Z79.4 Long term (current) use of insulin

== ENCOUNTER 2025-06-14 08:20 | Outpatient (AMB) | payer MEDICARE, OTHER, SELFPAY ==
--- OUTSIDE RECORDS SUMMARY | 2025-06-14 08:36 | XMS_ITS | Patient Health Record ---
Author Organization [facility] [place] Address [address] [facility] [place] [address] Care Team Providers Care Office Services Associate Name Role Phone Fausto MATA, Dina Primary Care Provider Grace Spears Unavailable [phone] Allergies No Known Allergies Results Component Value [...] Problem Acquired hammer toe of right foot (9929867465926484 ) Other hammer toe(s) (acquired), right foot (M20.41) Active confirmed Problem Acquired hammer toe of left foot (0096832777695963 ) Other hammer toe(s) (acquired), left foot (M20.42) Active confirmed Problem Polyneuropathy due to diabetes mellitus type I (533631897) Type 1 diabetes mellitus with diabetic polyneuropathy (E10.42) Active confirmed Problem Polyneuropathy due to type 2 diabetes mellitus (558866243) Type 2 diabetes mellitus with diabetic polyneuropathy (E11.42) Active confirmed Vital Signs Blood pressure diastolic 60 mm Hg 05/03/2025 Height 5ft 8in in 05/03/2025 Blood pressure systolic 130 mm Hg 05/03/2025 Weight 162 lbs lbs 05/03/2025 BMI 24.63 kg/m2 05/03/2025 Procedures Procedure Date Ordered Date Performed Result Body Sit e 57404-QPEMAWK NAIL, 6 OR MORE 05/03/2025 N/A 15620-DSDG SKIN LESIONS, 2 TO 4 05/03/2025 N/A Encounters Encounter Location Date Provider Diagnosis [facility] [place] [address] [place] [address] 05/03/2025 Grace Mayer Type 2 diabetes mellitus [...] Treatment Pending Test Test Name Order Date [id number]-[id number] NAIL, 6 OR MORE 05/03/2025 24536-HAUE SKIN LESIONS, 2 TO 4 05/03/20 25 Next Appt Details Provider Name:Grace Riveroemily sol, 05/06/2026 09:00:00 AM, [address] [place], [address], Insurance Providers Payer Name Payer Address Payer Phone Subscriber Number Group Number Insured Name Patient Relationship to Insured Coverage Start Date Coverage End Date Medicare National [employer] [address] [place] [address] [id number] David Raza i Self - patient is the insured [address] [facility] [address] [facility] [place] [address] [phone] [id number] David Raza i Self - patient is the insured 4 Medical (General) History Medical History History ICD Code Diabetic Kidney disease Surgical History Surgery Date(Month/Year) prostate surgery 2007
--- OUTSIDE RECORDS SUMMARY | 2025-06-14 08:36 | XMS_ITS | Patient Health Record ---
Author Organization [facility] Address [address] [place] [address] Care Team Providers Care Shirt Folding Machine Operator Name Role Phone Fausto MATA, Dina Primary [...] Status W/U Status Risk Notes Problem Esophageal reflu x (K21.9) Active confirmed Problem 01229368 Change in bowel movement (R19.8) Active confirmed Problem 302646259 Gastroesophageal reflux disease, unspecified whether esophagitis present (K21.9) Active confirmed Plan Of Treatment Future Test Test Name Order Date UPPER GI ENDOSCOPY 04/07/2023 COLONOSCOPY 04/07/2023 Insurance Providers Payer Name Payer Address Payer Phone Subscriber Number Group Number Insured Name Patient Relationship to Insured Coverage Start Date Coverage End Date MEDICARE OF [place] [address] [place] [id number] RAJAN PARHAM Self - patient is the insured [facility] [address] [place] [phone] [id number] RAJAN PARHAM Self - patient is the insured Medical (General) History Medical History History ICD Code Diabetes mellitus type 2 Chronic constipation Gastroesophageal reflux disease Urinary incontinence, stress Chronic kidney disease stage III Retinopathy Hypertension Hyperlipidemia Prostate cancer Surgical History Surgery Date(Month/Year) Artificial urinary sphincter placement Prostatectomy
--- OUTSIDE RECORDS SUMMARY | 2025-06-14 08:36 | XMS_ITS | Clinical Summary ---
Author Organization [facility] Address [address] [address] Phone Care Team Providers Care Fruit And Vegetable Classer Name Role Phone Dina Lambert MD Primary Care Provider [phone] Allergies No known active allergies Medications Insulin [...] differently: 25 mgOral Every morning, Reported on 06/11/2025 dilTIAZem HCl ER 180 MG tablet sustained-releas [...] Encounters Date Type Department Care Team Description 06/11/2025 1:45 PM EDT Office Visit [facility] [address] [facility] [address] [place] [address] Lauro Zacarias MD Stage 3 chronic kidney disease, not otherwise specified (HCC) (Primary Dx); Hypertension; Type 2 diabetes mellitus with diabetic chronic kidney disease (HCC); Other proteinuria 06/07/2025 Orders Only [facility] [address] [facility] [address] [place] [address] ProviderMalaika MD 04/20/2025 Refill [facility] [address] [facility] [address] [place] [address] Lauro Zacarias MD from Last 3 Months [...] Sign Reading Time Taken Comments Blood Pressure 110/58 06/11/2025 1:53 PM EDT Pulse 80 11/27/2024 2:35 PM EST Temperature - - Respiratory Rate - - Oxygen Saturation 98% 03/29/2024 9:38 AM EDT Inhaled Oxygen Concentration - - Weight 74.8 kg (165 lb) 06/11/2025 1:53 PM EDT Height - - Body Mass Index - - Plan of Treatment Upcoming Encounters Date Type Department Care Team (Late st Contact Info) Description 12/12/2025 1:45 PM EST Office Visit [facility] [address] [address] Lauro Zacarias MD [address] [address] Health Maintenance Due Date Last Done Comments Pneumococcal Vaccine: 50+ Ye ars (2 of 2 - PCV) 10/02/2016 10/02/2015 Diabetes: Hemoglobin A1C 12/22/2020 Diabetes: Ophthalmology Exam 12/22/2020 Diabetes: Pedal Pulse Checked 12/22/2020 Diabetes: Sensory Foot Exam 12/22/2020 Diabetes: Visual Foot Exam 12/22/2020 Influenza Vaccine (#1) 2025 Pneumococcal Vaccine: Peds ( 0 to 5 Years) and At-Risk Patients (6 to 49 Years) Discontinued 10/02/2015 Hepatitis B Vaccine Aged Out No longe r eligible based on patient's age to complete this topic Procedures Procedure Name Priority Date/Time Associated Diagnosis Comments RENAL FUNCTION PANEL (EXTERNAL LAB ENTRY) Routine 05/28/2025 3:34 PM EDT from Last 3 Months Results * Renal Function Panel (External Lab) (05/28/2025 3:34 PM EDT) Glucose 126 mg/dL BUN 37 mg/dL eGFR 32 BUN/Creatinine Ratio 18 Sodium 140 mEq/L Potassium 5.2 mEq/L Chloride 104 Carbon Dioxide 17 mmol/L Calcium 9.6 mg/dL Albumin (Blood) 4.3 g/dL Creatinine 2.10 mg/dL Blood us Historical Provider LAB BLOOD ORDERABLES Edit ed Result - Final from Last 3 Months Insurance Medicare Medicare [facility] Care Teams Fruit And Vegetable Classer Relationship Specialty Start Date End Date Dina Lambert MD [address] [place] [address], [address] [place] [address] PCP - General Internal Medicine 03/29/24
--- NOTE | 2025-06-14 08:37 | A.OFFVIS_ITS ---
Intake Intake Visit Reasons: 60 min Medical Data Entry Clerk Required: No Accompanied by: Spouse Allergies No Known Allergies Allergy (Verified 04/12/25 11:20) HPI Comprehensive Diabetes Asmnt Most Recent Diabetes Results: Microalb/Creat Ratio, (<30) 105.7 ug/mg cr H 03/29/25 Cholesterol, (<200) 142 mg/dL 05/22/25 HDL Cholesterol, (>40) 49 mg/dL 05/22/25 Triglycerides, (<150) 113 mg/dL 05/22/25 Creatinine, (0.5-1.4) 1.95 mg/dL H 05/22/25 BUN, (9-16) 32 mg/dL H 05/22/25 Sodium, (135-145) 140 mmol/L 05/22/25 Potassium, (3.3-5.1) 4.7 mmol/L 05/22/25 Chloride, (96-108) 110 mmol/L H 05/22/25 Carbon Dioxide, (22-29) 20 mmol/L L 05/22/25 Calcium, (8.4-10.2) 9.4 mg/dL 05/22/25 AST, (5-37) 22 U/L 05/22/25 ALT, (0-40) 22 U/L 05/22/25 Total Protein, (6.5-8.0) 7.1 g/dL 05/22/25 Albumin, (3.5-5.0) 4.5 g/dL 05/22/25 [facility] Medical History (Updated 12/26/24 @ 12:29 by Linda Pacheco MD) HLD (hyperlipidemia) Diabetes mellitus Prostate cancer Elevated cholesterol HTN (hypertension) Retinopathy CKD (chronic kidney disease), stage III Stress Urinary incontinence GERD (gastroesophageal reflux disease) Chronic constipation Diabetes Surgical History Hx of colonoscopy Hx of esophagogastroduodenoscopy Hx of prostatectomy Status post implantation of artificial urinary sphincter Social History Patient Tobacco Use Status: Former Tobacco user Assessment & Plan Assessment & Plan (1) Diabetes mellitus: Code(s): E11.9 - Type 2 diabetes mellitus without complications Qualifiers: Diabetes mellitus type: type 2 Diabetes mellitus [facility] insulin use: with terminal worker use Diabetes mellitus complication status: with kidney complications Diabetes mellitus complication detail: with chronic kidney disease Chronic kidney disease stage: stage 3 (moderate) Chronic kidney disease stage 3 subtype: stage 3a (GFR 45-59) Qualified Code(s): E11.22 - Type 2 diabetes mellitus with diabetic chronic kidney disease; N18.31 - Chronic kidney disease, stage 3a; Z79.4 - roasterman (current) use of insulin Plan: Diabetes self-management education and support participation record Assessment/scale: 1= needs instructed? 2= needs review? 3= comprehend keep point? 4= demonstrates understanding/ competent? NC= Not Covered Topics Learning Objective: Initial visit Initial or post srvc Initial or post srvc Initial or post srvc Initial or post srvc Initial or post srvc Post srvc Comments Pre Edu-assessment/plan Outcome or reassess Outcome or reassess Outcome or reassess Outcome or reassess Outcome or reassess Outcome or reassess Diabetes pathophysiology 1 3 Healthy eating 1 3 Being active 1 3 Taking medication 2 3 Monitoring glucose 1 3 Acute complication 1 3 Chronic complicated 2 3 Lifestyle and healthy coping 1 3 Diabetes distress in support 1 2 3 ?Diabetes pathophysiology: ?Defined diabetes med identify own type of diabetes; list 3 options for treating diabetes Healthy eating: ?Described effect of type, amount and ?timing of food on blood glucose; list 3 methods for planning meal Being active: ?State effect of exercise on blood glucose level Taking medication: ?State effect of diabetes medications on diabetes; name diabetes medications taking, action and side effects Monitoring glucose: ?Identify recommended blood glucose targets and personal target Acute complication: ?List symptoms and treatment of hyper and hypoglycemia, DKA, sick day guidelines and guidelines for severe weather or situations of crisis and diabetes supply manage Chronic complication: ?To find the relationship of blood glucose levels to long- term complications of diabetes in screening and preventative measures Lifestyle and healthy coping: ?Described lifestyle and healthy coping strategies to rule out diabetes self-management Diabetes to stress and support: ?Recognize Diabetes to stress and be able to identified support options Learning objectives: The patient was provided with verbal and written education on the following topics as outlined below. The patient met all learning objectives and was able to verbalize understanding and provide teach back of education topics discussed . The patient was provided with the opportunity to ask questions and all questions were answered. Patient Assessment Assess patient education level/literacy/barriers, patient's A1c on 04/12/25 7%, down from A1c of 10.2% on 12/26/2024 Patient questions/concerns patient is currently being treated for UTI, and noti carmen elevated glucose levels. Explained to patient the effects that infection can have on glucose levels, instructed patient if glucose levels are still elevated after UTI resolves to contact Diabetes Clinic Exercise Medical clearance Effect of exercise on blood sugar Start slowly and gradually increase pace/duration over time Goal amount of exercise Checking blood glucose/have a source of carbs with you Diabetes Complications: ?Nephropathy :Kidney Disease ?diabetes can damage the kidneys, which is not only can cause them to fail but can make them lose their ability to filter waste from the blood? ?Retinopathy: Eye complications ?Retinopathy? is the commonest long-term complication of diabetes. It is leading cause of blindness Besides, Retinopathy- People with diabetes? are also prone to cataract and Glaucoma. ?Neuropathy: Nerve damage -It involves temporary or permanent damage to nerve tissue. Nerve tissue gets injured mainly due to decreased blood flow and rise in blood glucose levels. This damage can lead to pain , or loss of sensation it can also include sexual dysfunction in both men and women ? Infections poor healing: People with diabetes? have increased susceptibility to various infections, such as? pneumonias, pyelonephritis, carbuncles and diabetic ulcers. This may be due to poor blood supply, reduced cellular immunity or hyperglycemia. ?Heart Disease And Stroke: People with diabetes are four times more prone to develop Heart disease than those who do not have diabetes ?Depression: Feeling down once in awhile is normal, but some people feel sadness that just won't go away. Life for them seems hopeless. Feeling this way most of the day for two weeks or more is a sign of serious depression ?Gum Disease: People get gum disease when plaque destroys the gums and bone around the teeth. People with diabetes can get gum disease from having high blood glucose levels for a long time Lifestyle * Work * Travel * Stress management * Problem solving Know your goals * A1C * Blood sugar targets * Blood pressure * Cholesterol/LDL Urine microalbumin Smart Goal Assessment: Patient will treat hypoglycemia with rule of 15 units Pt met goal 75% New Goal:? Patient will treat hypoglycemia with exercise and low carbohydrate fluids Educational Materials: The patient was provided with the following written educational materials: ADCES 7 Healthy Behaviors Reducing Risks handout Patient Response to instructions: Comprehension of Instructions: good Readiness to make changes: action How confident they feel about making changes: positive Letter of completion of diabetes Education program will be sent to referring provider Portions of this note were created using voice recognition software, please excuse any words or phrases that may have been misinterpreted. Patient Instructions: Include regular daily activity. ADA recommends 30 minutes of exercise 5 days a week. Weight loss talk to PCP or Retail Presentation Specialist before starting new plan. Test blood sugar as directed; Fasting and 2hpp largest meal. Watch trends in results. Utilize results and to assess how food, physical activity and medica tions affect blood sugar results. Bring glucometer or CGM to next visit. Be knowledgeable about diabetes medication, its action, side effects, efficacy, toxicity, prescribed dosage, appropriate timing and frequency of administration, effect of missed and delayed doses and instructions for storage, travel and safety. Problem solving techniques to monitor hypo/hyperglycemia episodes and treatments . Reduce risk reduction behaviors, smoking cessation, regular eye, foot and dental examinations. Coding Level of Care Code Est Pt Level 1 (38259) Diagnoses Type 2 diabetes mellitus with stage 3a chronic kidney disease, with long-term current use of insulin E11.22; N18.31; Z79.4 Diabetes mellitus type: type 2 Diabetes mellitus [facility]: with [facility] Diabetes mellitus complication status: with kidney complications Diabetes mellitus complication detail: with chronic kidney disease Chronic kidney disease stage: stage 3 (moderate) Chronic kidney disease stage 3 subtype: stage 3a (GFR 45-59)
== END 2025-06-14 09:11 | disposition home or self-care (01) ==
LOC: HO.ENCR 08:21
PROVIDERS: PCP Internal Medicine; Visit Provider Registered Nurse Diabetes Educator
DX: E11.22 Type 2 diabetes mellitus with diabetic chronic kidney disease (principal); N18.31 Chronic kidney disease, stage 3a; Z79.4 Long term (current) use of insulin

== ENCOUNTER → 2025-06-14 08:20 | Outpatient (BNVA) | payer MEDICARE, OTHER, SELFPAY | PROVIDERS: PCP Internal Medicine; Visit Provider Registered Nurse Diabetes Educator | DX: E11.22 Type 2 diabetes mellitus with diabetic chronic kidney disease (principal); I12.9 Hypertensive chronic kidney disease with stage 1 through stage 4 chronic kidney disease, or unspecified chronic kidney disease; N18.31 Chronic kidney disease, stage 3a | CPT/HCPCS: 99211 ==

== ENCOUNTER 2025-07-10 13:54 | Outpatient (AMB) | payer MEDICARE, OTHER, SELFPAY ==
[2025-07-10 13:56] VITALS: BP 114/56; PULSE 67; O2SAT 97; BMI 24.8
--- NOTE | 2025-07-10 13:56 | A.OFFVIS_ITS ---
Vital Signs 3 07/10/25 13:56 Height 5 ft 8 in Weight 163 lb 2.273 oz BMI 24.8 BP 114/56 L Blood Pressure Location Lt brachial Pulse 67 Pulse Source Pulse Oximeter Pulse Oximetry (%) 97 Oxygen Delivery Method Room Air Intake Visit Reasons: T2DM Intake Note: Patient present today for Type 2 Diabetes Mellitus Last Diabetic eye exam: Last exam was over a year ago but has upcoming appt in two months. Last Podiatry Visit: 03/2025 Random Glucose: 162 mg/dl HgA1C: 7.3% Appian Bpm Developer Required: No Accompanied by: Spouse Allergies No Known Allergies Allergy (Verified 07/10/25 14:02) Medication List - Last Reconciled 07/10/25 by Linda Pacheco MD blood-glucose sensor (Dexcom G7 Sensor device) As directed every 10 days blood-glucose,precision dancer,cont (Dexcom G7 [employer]) As directed cholecalciferol (vitamin D3) (Vitamin D3) 50 mcg PO DAILY diltiazem HCl CD 180 mg PO DAILY empagliflozin (Jardiance) 25 mg PO DAILY glucose (Dex4 Glucose) 4 grams PO Q15M PRN insulin glargine (Basaglar KwikPen U-100 Insulin) 40 units (0.4 mL) subcut QAM insulin lispro (Humalog KwikPen (U-100) Insulin) subcutaneously 3 times a day; Daily 15 mins before supper Take 6 units before breakfast, 8-10 units before lunch and dinner isosorbide mononitrate ER 30 mg PO DAILY omeprazole 20 mg PO BID pen needle, diabetic As directed to inject insulin twice a day polyethylene glycol 3350 (Miralax) 17 grams PO DAILY semaglutide (Ozempic) 2 mg (0.75 mL) subcut QWEEK sennosides (senna) 8.6 mg PO BID PRN simvastatin 80 mg PO DAILY HPI Comments Details: 74-year-old male here today for follow up of type 2 diabetes mellitus with long- term insulin use with complications of CKD stage 2, CAD, hyperlipidemia, hypertension, retinopathy. Here today with Sina . last seen 04/15 History of diabetes Diagnosed at the age of late 20s. Family history Brother: Type 2 DM no one with Type 1 DM Prior therapy: Has been on insulin for over 10 years Has been on OZempic for many years as well Jardiance started sometime early 2023 Previously has tried Trulicity Current regimen: Ozempic 2 mg weekly increased from 1 mg 12/26/24, taking it on Jardiance 25 mg daily Basagalar 35 units daily in AM Humalog 12 units with breakfast , pre lunch and dinner, 6 units for half a meal Reports good adherence never misses medication Dexcom G7 data downloaded from June 27 to 07/10/2025 Average glucose 160 mg/dL G NV 7.1% Coefficient of variation 36.5% Within target range 68% High 23% Very high 8% Low 1% Very low 0% Time CGM active 97% Interpretation: Very variable pattern, possibly due to inconsistencies in diet, more recently he has been having postprandial hyperglycemia after lunch and breakfast, though some days after breakfast he also has lows. Overnight blood sugars are within range. A1c POC 12/26/24 10.2%. A1c lab 01/26/25 10.7 % A1c POC 07/10/25: 7.3% Random Glucose: 162 mg/dl Does endorse symptoms of hyperglycemia including polyphagia, polyuria, polydipsia. Vaccines:Flu shot July 2024, Pneumoccocal vaccine , no booster for COVID ,but vaccinated initially Complications Eye exam: Last eye exam was 06/2024, has retinopathy , bad report last visit . Neuropathy: none , Last Podiatry Visit: Has upcoming appt in April. Kidney disease: Follows with Nephrology Dr. Tom Green, [facility] in [place] , CKD stage 2-3 03/29/2024: Albumin/creatinine ratio 164 improved to 105 03/29/2025 Macrovascular complications:has CAD? , has has TIAs in the past Statin:simvasatin 80 mg daily , 05/2024: LDL 75 mg per day, improved to 69 from March 2025 ABHINAV/ARB: no ABHINAV /ARB Exercise: Walks in summer, takes the dog out not much more CDE: Last seen 06/14/2025 Was working with a author's agent earlier this year 2024 Diet control: 7-8Am : cereal or [place] muffin snacks salsa with rackers or chips Lunch 11-1130 sandwich with tuna or salami Snacks salsa with chips Dinner : spaghetti No dessert [place] water with some sugar Physical exam General: sitting comfortably in no acute distress HEENT: normocephalic/atraumatic, Neck: supple, symmetrical Cardiac: normal heart sounds Pulm: normal breath sounds B/L, no added breath sounds Abd: not distended, no tenderness Extremities: no edema, no signs of myxedema Neuro: AAO x3, Speech: normal, no facial droop, moving all 4 extremities Foot exam: checked March 2025 Intact sensation to monofilament, warm and well- perfused Laboratory Tests 12/26/24 12/26/24 01/15/25 11:13 12:56 11:26 Creatinine Estimated GFR Glucose (Clinic) 169 H 144 H Hgb A1c (Clinic) 10.2 H C-Peptide Calcium AST ALT Albumin Triglycerides Cholesterol LDL Cholesterol, Calc HDL Cholesterol Urine Creatinine Urine Microalbumin Microalb/Creat Ratio 03/29/25 08:05 Creatinine 1.62 H Estimated GFR 42 Glucose (Clinic) Hgb A1c (Clinic) C-Peptide 1.26 Calcium 9.5 AST 20 ALT 19 Albumin 4.3 Triglycerides 98 Cholesterol 131 LDL Cholesterol, Calc 69 HDL Cholesterol 43 Urine Creatinine 62.42 Urine Microalbumin 66.0 Microalb/Creat Ratio 105.7 H [facility] Medical History (Updated 12/26/24 @ 12:29 by Linda Pcaheco MD) HLD (hyperlipidemia) Diabetes mellitus Prostate cancer Elevated cholesterol HTN (hypertension) Retinopathy CKD (chronic kidney disease), stage III Stress Urinary incontinence GERD (gastroesophageal reflux disease) Chronic constipation Diabetes Surgical History Hx of colonoscopy Hx of esophagogastroduodenoscopy Hx of prostatectomy Status post implantation of artificial urinary sphincter Social History Patient Tobacco Use Status: Former Tobacco user Physical Exam Vital Signs: Last Vital Signs Pulse 67 07/10/25 13:56 BP 114/56 L 07/10/25 13:56 Pulse Ox 97 07/10/25 13:56 Oxygen Delivery Method Room Air 07/10/25 13:56 BMI result Body Mass Index 24.8 Office Procedures Glucose Monitoring Details Details: see HPI 75804 - Glucose monitoring, continuous-physician I&R Procedure code (CPT) selection complete Results AMB Hemoglobin A1c 2 AMB Hemoglobin A1c 7.3 % Last Edit by ERASTO Germain on 07/10/25 14:14 Results Reviewed Results Reviewed: Laboratory Last Values Glucose (Clinic) 162 mg/dL (60-115) H 07/10/25 14:04 Assessment & Plan Assessment & Plan (1) Diabetes mellitus: Code(s): E11.9 - Type 2 diabetes mellitus without complications Category: Medical Qualifiers: Diabetes mellitus type: type 2 Diabetes mellitus [facility]: with [facility] Diabetes mellitus complication status: with kidney complications Diabetes mellitus complication detail: with chronic kidney disease Chronic kidney disease stage: stage 3 (moderate) Chronic kidney disease stage 3 subtype: stage 3a (GFR 45-59) Qualified Code(s): E11.22 - Type 2 diabetes mellitus with diabetic chronic kidney disease; N18.31 - Chronic kidney disease, stage 3a; Z79.4 - watermelon harvesting supervisor (current) use of insulin Plan: 74-year-old male who was diagnosed with type 2 diabetes mellitus when he was in his late 20s, who is currently on long-term insulin with complications of CKD stage 2/3A, microalbuminuria, retinopathy, CAD, TIA. A1c POC 07/10/2025 improved to 7.3% down from 01/26/2025 10.7%. I did encourage him to keep up with the walking and taking care of his diet. During May 2025 he had a UTI, resulting in higher blood sugars but now his CGM data shows much improved readings but he does have some postprandial hyperglycemia mostly after lunch and breakfast. Overnight sugars are okay. We will go up on his breakfast and lunch mealtime insulin as he continues to have postprandial hyperglycemia. Plan: -continue Ozempic to 2 mg weekly -continue Basaglar 35 units daily - Increase Humalog prior to breakfast and lunch to 14 units and pre dinner continue 12 units units of humalog , 6 units if eating half or less of the meal -continue Jardiance 25 mg daily -discussed importance of verifying a low blood sugar with a his fingerstick -follow up in 2 months -due for eye visit, has a history of retinopathy, follows with Ophthalmology, has a upcoming appointment in August 2025 -saw Podiatry 03/2025 (2) HLD (hyperlipidemia): Code(s): E78.5 - Hyperlipidemia, unspecified Category: Medical Qualifiers: Hyperlipidemia type: mixed hyperlipidemia Qualified Code(s): E78.2 - Mixed hyperlipidemia Plan: On simvastatin 80 mg daily Last LDL from May 2024 was 75 mg/dL, goal LDL less than 70 mg/dL , LDL now improved to 69 mg/dL which is within goal from March 2025. Plan: -continue simvastatin 80 mg daily Plan I spent 30 minutes in reviewing the record, seeing the patient and documenting in the medical record. Orders: Orders 2 AMB Hemoglobin A1c Today E11.22 - Type 2 diabetes mellitus with diabetic chronic kidney disease, N18.31 - Chronic kidney disease, stage 3a, Z13.9 - Encounter for screening, unspecified, Z79.4 - watermelon harvesting supervisor (current) use of insulin AMB Glucose Monitoring Today E11.22 - Type 2 diabetes mellitus with diabetic chronic kidney disease, N18.31 - Chronic kidney disease, stage 3a, Z79.4 - watermelon harvesting supervisor (current) use of insulin Medications: Changed 2 From insulin glargine (Basaglar KwikPen U-100 Insulin) 40 units (0.4 mL) subcut QAM 15 mL 4RF To insulin glargine (Basaglar KwikPen U-100 Insulin) 35 units (0.35 mL) subcut QAM 15 mL 4RF From insulin lispro (Humalog KwikPen (U-100) Insulin) subcutaneously 3 times a day; Daily 15 mins before supper Take 6 units before breakfast, 8-10 units before lunch and dinner 15 mL 3RF To insulin lispro (Humalog KwikPen (U-100) Insulin) subcutaneously 3 times a day; Daily 15 mins before supper Take 14 units before breakfast and lunch , 12 units before dinner, 6 units with a snack 15 mL 3RF Patient Instructions: Continue Ozempic 2 mg weekly Jardiance 25 mg daily Basagalar 35 units daily in AM Humalog 14 units with breakfast and lunch and 12 units with dinner, 6 units for half a meal Coding Level of Care Code Est Pt Level 4 (70387) Diagnoses Type 2 diabetes mellitus with stage 3a chronic kidney disease, with long-term current use of insulin E11.22; N18.31; Z79.4 Diabetes mellitus type: type 2 Diabetes mellitus [facility]: with [facility] Diabetes mellitus complication status: with kidney complications Diabetes mellitus complication detail: with chronic kidney disease Chronic kidney disease stage: stage 3 (moderate) Chronic kidney disease stage 3 subtype: stage 3a (GFR 45-59) Mixed hyperlipidemia E78.2 Hyperlipidemia type: mixed hyperlipidemia CPT Codes Details - CPT: 37203 - Glucose monitoring, continuous-physician I&R ([id number]) Time Spent (min) 30
[2025-07-10 14:08] LABS: Glucose, Whole Blood 162 mg/dL (60-115)
--- OUTSIDE RECORDS SUMMARY | 2025-07-10 15:13 | XMS_ITS | Patient Health Record ---
Author Organization [facility] Address [address] [place] [id number] Care Team Providers Care Cast Associate Name Role Phone Fausto MATA, Dina [...] W/U Status Risk Notes Problem Esophageal reflux ([id number]) Esophageal reflux (K21.9) Active confirmed Problem [id number] Change in bowel movement (R19.8) Active confirmed Problem [id number] Gastroesophageal reflux disease, unspecified whether esophagitis present (K21.9) Active confirmed Plan Of Treatment Future Test Test Name Order Date UPPER GI ENDOSCOPY 04/07/2023 COLONOSCOPY 04/07/2023 Insurance Providers Payer Name Payer Address Payer Phone Subscriber Number Group Number Insured Name Patient Relationship to Insured Coverage Start Date Coverage End Date MEDICARE OF [place] [address] [place] [address] [id number] RAJAN PARHAM Self - patient is the insured [facility] [address] [place] [phone] [id number] RAJAN PARHAM Self - patient is the insured Medical (General) History Medical History History ICD Code Diabetes mellitus type 2 Chronic constipation Gastroesophageal reflux disease Urinary incontinence, stress Chronic kidney disease stage III Retinopathy Hypertension Hyperlipidemia Prostate cancer Surgical History Surgery Date(Month/Year) Artificial urinary sphincter placement Prostatectomy
--- OUTSIDE RECORDS SUMMARY | 2025-07-10 15:13 | XMS_ITS | Clinical Summary ---
Author Organization [facility] Address [address] [address] Phone Care Team Providers Care Dental Assisting Instructor Name Role Phone Dina Lambert MD Primary Care Provider [phone] Allergies No known active allergies Medications Insulin [...] Office Visit [facility]. [address] [facility] [address] [place] [address] Lauro Zacarias MD Stage 3 chronic kidney disease, not otherwise specified (HCC) (Primary Dx); Hypertension; Type 2 diabetes mellitus with diabetic chronic kidney disease (HCC); Other proteinuria 06/07/2025 Orders Only [facility] [address] [facility] [address] [place] [address] ProviderMalaika MD 04/20/2025 Refill [facility] [address] [facility] [address] [place] [address] Lauro Zacarias MD from Last 3 Months [...] Office Visit [facility] [address] [phone] Lauro Zacarias MD [address] [address] Health Maintenance Due Date Last [...] from Last 3 Months Insurance Medicare Medicare [facility] Care Teams Dental Assisting Instructor Relationship Specialty Start Date End Date Dina Lambert MD [address] [place] [address], [address] [place] [address] PCP - General Internal Medicine 03/29/24
--- OUTSIDE RECORDS SUMMARY | 2025-07-10 15:13 | XMS_ITS | Patient Health Record ---
Author Organization [facility] [place] Address [address] [place] [address] Care Team Providers Care Yarn Dumper Name Role Phone Fausto MATA, Dina Primary Care Provider Grace Spears Unavailable [phone] Allergies No Known Allergies Results Component Value [...] Problem Acquired hammer toe of right foot (7356116071199639 ) Other hammer toe(s) (acquired), right foot (M20.41) Active confirmed Problem Acquired hammer toe of left foot (8345292145959011 ) Other hammer toe(s) (acquired), left foot (M20.42) Active confirmed Problem Polyneuropathy due to diabetes mellitus type I (276990054) Type 1 diabetes mellitus with diabetic polyneuropathy (E10.42) Active confirmed Problem Polyneuropathy due to type 2 diabetes mellitus (800303420) Type 2 diabetes mellitus with diabetic polyneuropathy (E11.42) Active confirmed Vital Signs Blood pressure diastolic 60 mm Hg 05/03/2025 Height 5ft 8in in 05/03/2025 Blood pressure systolic 130 mm Hg 05/03/2025 Weight 162 lbs lbs 05/03/2025 BMI 24.63 kg/m2 05/03/2025 Procedures Procedure Date Ordered Date Performed Result Body Sit e 54172-XAAPATF NAIL, 6 OR MORE 05/03/2025 N/A 22021-EMHP SKIN LESIONS, 2 TO 4 05/03/2025 N/A Encounters Encounter Location Date Provider Diagnosis [facility] [place] [address] [place] [address] 05/03/2025 Grace Mayer Type 2 diabetes mellitus [...] Treatment Pending Test Test Name Order Date [id number] NAIL, 6 OR MORE 05/03/2025 49675-[id number] SKIN LESIONS, 2 TO 4 05/03/20 25 Next Appt Details Provider Name:Grace iRveroemily sol, 05/06/2026 09:00:00 AM, [address] [place], [address], Insurance Providers Payer Name Payer Address Payer Phone Subscriber Number Group Number Insured Name Patient Relationship to Insured Coverage Start Date Coverage End Date Medicare National [employer] [address] [place] [address] [id number] David Raza i Self - patient is the insured 3 [facility] [address] [facility] [place] [address] [id number] David Raza i Self - patient is the insured 4 Medical (General) History Medical History History ICD Code Diabetic Kidney disease Surgical History Surgery Date(Month/Year) prostate surgery 2007
== END 2025-07-10 14:21 | disposition home or self-care (01) ==
LOC: HO.ENCR 13:55
PROVIDERS: PCP Internal Medicine; Visit Provider Student in an Organized Health Care Education/Training Program
DX: Z13.9 Encounter for screening, unspecified (principal); E11.22 Type 2 diabetes mellitus with diabetic chronic kidney disease; N18.31 Chronic kidney disease, stage 3a; Z79.4 Long term (current) use of insulin; E78.2 Mixed hyperlipidemia
CPT/HCPCS: 95251; 99214

== ENCOUNTER → 2025-07-10 13:54 | Outpatient (BNVA) | payer MEDICARE, OTHER, SELFPAY | PROVIDERS: PCP Internal Medicine; Visit Provider Student in an Organized Health Care Education/Training Program | DX: E11.22 Type 2 diabetes mellitus with diabetic chronic kidney disease (principal); N18.31 Chronic kidney disease, stage 3a; E78.2 Mixed hyperlipidemia; Z79.4 Long term (current) use of insulin | CPT/HCPCS: 82947; 83036; 99212 ==

== ENCOUNTER 2025-09-21 10:50 | Outpatient (AMB) | payer MEDICARE, OTHER, SELFPAY ==
--- NOTE | 2025-09-21 10:52 | A.OFFVIS_ITS ---
Vital Signs 3 09/21/25 10:55 Height 5 ft 8 in Weight 165 lb 5.547 oz BMI 25.1 BP 116/58 L Blood Pressure Location Rt brachial Position Sitting Pulse 72 Pulse Source Pulse Oximeter Pulse Oximetry (%) 98 Oxygen Delivery Method Room Air Intake Visit Reasons: Q0AX-Vz.Khan pt Intake Note: Patient presents today for a follow-up on Type 2 Diabetes Mellitus: Patient of DR Linda Pacheco MD. Last Diabetic eye exam: Last exam was over a year ago but has upcoming appt in two months Patient does not recall Last Podiatry Visit: 03/2025 Most Recent HgA1C: 7.3%, 07/10/2025 Random Glucose: 95 mg/dL Shearer Helper Required: No Accompanied by: Self / Same As Patient Allergies No Known Allergies Allergy (Verified 07/10/25 14:02) HPI Comments Details: 74-year-old male here today for follow up of type 2 diabetes mellitus with long- term insulin use with complications of CKD stage 2, CAD, hyperlipidemia, hypertension, retinopathy. Last seen by Dr. Pacheco on 07/10/25. This is the 1st time I see this patient. History of diabetes Diagnosed at the age of late 20s. Family history Brother: Type 2 DM no one with Type 1 DM Prior therapy: Has been on insulin for over 10 years Has been on OZempic for many years as well Jardiance started sometime early 2023 Previously has tried Trulicity Current regimen: Ozempic 2 mg weekly increased from 1 mg 12/26/24, taking it on Jardiance 25 mg daily Basaglar 35 units daily in AM Humalog prior to 14 units breakfast and lunch and 12 units units pre dinner, 6 units if eating half or less of the meal Reports good adherence never misses medication A1c POC 12/26/24 10.2%. A1c lab 01/26/25 10.7 % A1c POC 07/10/25: 7.3% Vaccines:Flu shot July 2024, Pneumoccocal vaccine , no booster for COVID ,but vaccinated initially Complications Eye exam: Last eye exam was 06/2024, has retinopathy, has not made the follow up appoitment yet Neuropathy: Last Podiatry Visit: seen April, no neuropathy Kidney disease: Follows with Nephrology Dr. Tom Green [facility] in [place] , CKD stage 2-3 03/29/2024: Albumin/creatinine ratio 164 improved to 105 03/29/2025 Macrovascular complications:has CAD? , has had TIAs in the past Statin:simvasatin 80 mg daily, 05/2024: LDL 75 mg per day, improved to 69 from March 2025 ABHINAV/ARB: no ABHINAV /ARB Exercise: Walks in summer, takes the dog out not much more CDE: Last seen 06/14/2025 Was working with a scanning supervisor earlier this year 2024 Diet control: 7-8Am : cereal or burmese muffin snacks salsa with rackers or chips Lunch 11-1130 sandwich with tuna or salami Snacks salsa with chips Dinner : spaghetti No dessert [place] water with some sugar Interval history 09/21/25 Seen by PCP 09/20/25, switched him to ?Wegovy/Zepbound He was not losing weight with Ozempic 2mg dose He is not snacking much as he was doing before Minor physical activity No recent lows Physical exam General: Well appearing. NAD. Not Cushingoid or Acromegalic CV: RRR, no murmur. No edema. Resp:Lungs clear to auscultation bilaterally Abdomen: Soft, nontender. nondistended. Extremities/Neuro: No weakness or tremor of outstretched hands Laboratory Tests 12/26/24 12/26/24 01/15/25 11:13 12:56 11:26 Creatinine Estimated GFR Glucose (Clinic) 169 H 144 H Hgb A1c (Clinic) 10.2 H C-Peptide Calcium AST ALT Albumin Triglycerides Cholesterol LDL Cholesterol, Calc HDL Cholesterol Urine Creatinine Urine Microalbumin Microalb/Creat Ratio 03/29/25 08:05 Creatinine 1.62 H Estimated GFR 42 Glucose (Clinic) Hgb A1c (Clinic) C-Peptide 1.26 Calcium 9.5 AST 20 ALT 19 Albumin 4.3 Triglycerides 98 Cholesterol 131 LDL Cholesterol, Calc 69 HDL Cholesterol 43 Urine Creatinine 62.42 Urine Microalbumin 66.0 Microalb/Creat Ratio 105.7 H CGM data: Interpretation: Overall excellent control. mildly hyperglycemia during dinner. [facility] Medical History (Updated 12/26/24 @ 12:29 by Linda Pacheco MD) HLD (hyperlipidemia) Diabetes mellitus Prostate cancer Elevated cholesterol HTN (hypertension) Retinopathy CKD (chronic kidney disease), stage III Stress Urinary incontinence GERD (gastroesophageal reflux disease) Chronic constipation Diabetes Surgical History Hx of colonoscopy Hx of esophagogastroduodenoscopy Hx of prostatectomy Status post implantation of artificial urinary sphincter Social History Patient Tobacco Use Status: Former Tobacco user Physical Exam Vital Signs: Last Vital Signs Pulse 72 09/21/25 10:55 BP 116/58 L 09/21/25 10:55 Pulse Ox 98 09/21/25 10:55 Oxygen Delivery Method Room Air 09/21/25 10:55 BMI result Body Mass Index 25.1 Office Procedures Glucose Monitoring Details Details: See [facility] [address] - Glucose Monitoring, continuous Procedure code (CPT) selection complete Results Reviewed Results Reviewed: Laboratory Last Values Glucose (Clinic) 95 mg/dL (60-115) 09/21/25 11:02 Assessment & Plan Assessment & Plan (1) Diabetes mellitus: Code(s): E11.9 - Type 2 diabetes mellitus without complications Category: Medical Qualifiers: Chronic kidney disease stage: stage 3 (moderate) Chronic kidney disease stage 3 subtype: stage 3a (GFR 45-59) Diabetes mellitus complication detail: w ith chronic kidney disease Diabetes mellitus complication status: with kidney complications Diabetes mellitus skilled nursing insulin use: with skilled nursing use D iabetes mellitus type: type 2 Qualified Code(s): E11.22 - Type 2 diabetes mellitus with diabetic chronic kidney disease; N18.31 - Chronic kidney disease, stage 3a; Z79.4 - terminal operations supervisor (current) use of insulin Plan: 74-year-old male who was diagnosed with type 2 diabetes mellitus when he was in his late 20s, who is currently on long-term insulin with complications of CKD stage 2/3A, microalbuminuria, retinopathy, CAD, TIA. A1c POC 07/10/2025 improved to 7.3% down from 01/26/2025 10.7%. I did encourage him to keep up with the walking and taking care of his diet. During May 2025 he had a UTI, resulting in higher blood sugars but now his CGM data shows much improved readings but he does have some postprandial hyperglycemia mostly after lunch and breakfast. Overnight sugars are okay. We will go up on his breakfast and lunch mealtime insulin as he continues to have postprandial hyperglycemia. Based on average BG 164, his A1c is approximately 7.3% Plan: -Start Wegovy/Zepbound per PCP order -Patient advised that insulin requirements can decrease with more effective GLP- 1 -continue Basaglar 35 units daily -continue Jardiance 25 mg daily -provide the patient with the above comprehensive scale that we taking into account blood sugars and meal size -discussed importance of verifying a low blood sugar with a his fingerstick -advised the patient to rotate sites injections to avoid lipodystrophy and poor insulin that source -advise the patient that in case of hypoglycemia, could decrease his mealtime insulin scale by 2 in all scales and call us. -follow up in 3 months -due for eye visit, has a history of retinopathy, follows with Ophthalmology, asked to make the appoitment -saw Podiatry 03/2025 (2) HLD (hyperlipidemia): Code(s): E78.5 - Hyperlipidemia, unspecified Category: Medical Qualifiers: Hyperlipidemia type: mixed hyperlipidemia Qualified Code(s): E78.2 - Mixed hyperlipidemia Plan: On simvastatin 80 mg daily Last LDL from May 2024 was 75 mg/dL, goal LDL less than 70 mg/dL , LDL now improved to 69 mg/dL which is within goal from March 2025. Plan: -continue simvastatin 80 mg daily -Repeat lipid in March 2026 Plan I spent 30 minutes in reviewing the record, seeing the patient and documenting in the medical record. Orders: Orders 2 AMB Glucose Monitoring Today E11.22 - Type 2 diabetes mellitus with diabetic chronic kidney disease, N18.31 - Chronic kidney disease, stage 3a, Z79.4 - halfway (current) use of insulin Patient Instructions: Basaglar 35 units daily Insulin Dose (units) ? Take 10?15 minutes prior to the meal Blood Sugar Level (mg/dl) Small Meal?(low carb <30g like salad, eggs with meat) Normal Meal?(30?60g like sandwich, chips, meat, small starch portion) Large Meal?(>60g like pizza, lasagna, Greenlandic food, meal + dessert) <100 4 6 8 101?150 6 8 10 151?200 8 10 12 201?250 10 12 14 251?300 12 14 16 301?350 14 16 18 351?400 16 18 20 >400 18 20 22 If low blood sugar then decrease all scales by 2 Coding Level of Care Code Est Pt Level 4 (80939) Diagnoses Type 2 diabetes mellitus with stage 3a chronic kidney disease, with long-term current use of insulin E11.22; N18.31; Z79.4 Chronic kidney disease stage: stage 3 (moderate) Chronic kidney disease stage 3 subtype: stage 3a (GFR 45-59) Diabetes mellitus complication detail: with chronic kidney disease Diabetes mellitus complication status: with kidney complications Diabetes mellitus skilled nursing insulin use: with buttermaker helper use Diabetes mellitus type: type 2 Mixed hyperlipidemia E78.2 Hyperlipidemia type: mixed hyperlipidemia CPT Codes Details - CPT: 30913 - Glucose Monitoring, continuous ([id number])
[2025-09-21 10:55] VITALS: BP 116/58; PULSE 72; O2SAT 98; BMI 25.1
[2025-09-21 11:06] LABS: Glucose, Whole Blood 95 mg/dL (60-115)
--- OUTSIDE RECORDS SUMMARY | 2025-09-21 12:21 | XMS_ITS | Patient Health Record ---
Author Organization [facility] [place] Address [address] [facility] [place] [address] Care Team Providers Care Gauge Inspector Name Role Phone Fausto MATA, Dina Primary Care Provider Grace Spears Unavailable [phone] Allergies No Known Allergies Results Component Value [...] Problem Acquired hammer toe of right foot (4305339996325023 ) Other hammer toe(s) (acquired), right foot (M20.41) Active confirmed Problem Acquired hammer toe of left foot (2973010601694429 ) Other hammer toe(s) (acquired), left foot (M20.42) Active confirmed Problem Polyneuropathy due to diabetes mellitus type I (360494362) Type 1 diabetes mellitus with diabetic polyneuropathy (E10.42) Active confirmed Problem Polyneuropathy due to type 2 diabetes mellitus (365182228) Type 2 diabetes mellitus with diabetic polyneuropathy (E11.42) Active confirmed Vital Signs Blood pressure diastolic 60 mm Hg 05/03/2025 Height 5ft 8in in 05/03/2025 Blood pressure systolic 130 mm Hg 05/03/2025 Weight 162 lbs lbs 05/03/2025 BMI 24.63 kg/m2 05/03/2025 Procedures Procedure Date Ordered Date Performed Result Body Sit e 66493-KYGVVXT NAIL, 6 OR MORE 05/03/2025 N/A 38344-UIIR SKIN LESIONS, 2 TO 4 05/03/2025 N/A Encounters Encounter Location Date Provider Diagnosis [facility] [place] [address] [place] [address] 05/03/2025 rGace Mayer Type 2 diabetes mellitus with diabetic [...] Treatment Pending Test Test Name Order Date [id number] NAIL, 6 OR MORE 05/03/2025 [id number] SKIN LESIONS, 2 TO 4 05/03/20 25 Next Appt Details Provider Name:Grace Riveroemily sol, 05/06/2026 09:00:00 AM, [address] [place], [address], Insurance Providers Payer Name Payer Address Payer Phone Subscriber Number Group Number Insured Name Patient Relationship to Insured Coverage Start Date Coverage End Date Medicare National Gov[employer] Sv[employer] [address] [place] [address] [id number] David Raza i Self - patient is the insured 3 [facility] [address] [place] [address] [phone] [id number] David Raza i Self - patient is the insured 4 Medical (General) History Medical History History ICD Code Diabetic Kidney disease Surgical History Surgery Date(Month/Year) prostate surgery 2007
--- OUTSIDE RECORDS SUMMARY | 2025-09-21 12:21 | XMS_ITS | Patient Health Record ---
Author Organization [facility] Address [address] [place] [address] Care Team Providers Care Space Scheduler Name Role Phone Fausto MATA, Dina Primary Care Provider Tan Martin Jr Unavailable [phone] Allergies Allergen (clinical drug ingredient) Drug/Non Drug Allergy documented on EMR Reaction Allergy Type Onset Date Status hayfever (uncoded) Unknown Allergy A ctive Reason For Referral No Information Medications Medication SIG (Take, Route, Frequency, Duration) Notes Start Date End Date Status dilTIAZem HCl ER 180 MG 1 tablet Orally Once a day; Duration: 30 day(s) Active Simvastatin 80 MG as directed Orally Active MiraLax (colon prep) 17 GM/SCOOP mixed with Gatorade or Crystal Light Orally begin at 5:00 p.m. the day before the procedure; Duration: 1 day 04/07/2023 Active Basaglar KwikPen 100 UNIT/ML as directed Subcutaneous Act kelly Clopidogrel Bisulfate 75 MG 1 tablet Orally Once a day; Duration: 30 day(s) Active Vitamin D3 50 MCG (1999 UT) 1 capsule Orally Once a day; Duration: 30 day(s) Active Isosorbide Mononitrate ER 30 MG 1 tablet in the morning Orally Once a day; Duration: 30 day(s) Active metFORMIN HCl 1000 MG 1 tablet with a me al Orally Once a day; Duration: 30 day(s) Active Pantoprazole Sodium 40 MG 1 tablet Orall y Once a day; Duration: 30 days 04/07/2023 Active Senna 8.6 MG 2 tablets at bedtime as needed Orally Once a day; Duration: 30 day(s) Active Trospium Chloride ER 60 MG 1 capsule in the morning on an empty stomach or 1 hour before a meal Orally Once a day; Duration: 30 day(s) Active Ozempic (1 MG/DOSE) 4 [...] W/U Status Risk Notes Problem Esophageal reflux (613211074) Esophageal reflux (K21.9) Active confirmed Problem Altered bowel function (55929080) Change in bowel movement (R19.8) Active confirmed Problem Gastroesophageal reflux disease (182443640) Gastroesophageal reflux disease, unspecified whether esophagitis present (K21.9) Active confirmed Plan Of Treatment Future Test Test Name Order Date UPPER GI ENDOSCOPY 04/07/2023 COLONOSCOPY 04/07/2023 Insurance Providers Payer Name Payer Address Payer Phone Subscriber Number Group Number Insured Name Patient Relationship to Insured Coverage Start Date Coverage End Date MEDICARE OF [place] [address] [facility] [address] [id number] RAJAN PARHAM Self - patient is the insured [facility] [address] [place] [address] [id number] RAJAN PARHAM Self - patient is the insured Medical (General) History Medical History History ICD Code Diabetes mellitus type 2 Chronic constipation Gastroesophageal reflux disease Urinary incontinence, stress Chronic kidney disease stage III Retinopathy Hypertension Hyperlipidemia Prostate cancer Surgical History Surgery Date(Month/Year) Artificial urinary sphincter placement Prostatectomy
== END 2025-09-21 11:43 | disposition home or self-care (01) ==
LOC: HO.ENCR 10:50
PROVIDERS: PCP Internal Medicine; Visit Provider Student in an Organized Health Care Education/Training Program
DX: E11.22 Type 2 diabetes mellitus with diabetic chronic kidney disease (principal); N18.31 Chronic kidney disease, stage 3a; Z79.4 Long term (current) use of insulin; E78.2 Mixed hyperlipidemia
CPT/HCPCS: 99214

== ENCOUNTER → 2025-09-21 10:50 | Outpatient (BNVA) | payer MEDICARE, OTHER, SELFPAY | PROVIDERS: PCP Internal Medicine; Visit Provider Student in an Organized Health Care Education/Training Program | DX: E11.22 Type 2 diabetes mellitus with diabetic chronic kidney disease (principal); N18.31 Chronic kidney disease, stage 3a; E78.2 Mixed hyperlipidemia; E11.319 Type 2 diabetes mellitus with unspecified diabetic retinopathy without macular edema; Z79.4 Long term (current) use of insulin; Z79.84 Long term (current) use of oral hypoglycemic drugs; Z79.899 Other long term (current) drug therapy | CPT/HCPCS: 82947; 95250; 99212 ==

== ENCOUNTER 2025-10-31 10:43 | Outpatient (AMB) | payer MEDICARE, OTHER, SELFPAY ==
[2025-10-31 10:50] VITALS: BMI 25.4
--- NOTE | 2025-10-31 10:50 | MHC.AMNUTRGE ---
VS Expanded 10/31/25 10:50 Height 5 ft 8 in Weight 167 lb 5 oz BMI 25.4 Intake Visit Reasons: T2DM Allergies No Known Allergies Allergy (Verified 07/10/25 14:02) Nutrition Presentation Details: Patient presents for medical nutrition therapy for type 2 diabetes. Patient presents with during this appointment Patient brought glucose sensor and blood sugars are 54% within target with average blood sugar at 180 9%. Patient acknowledges blood glucose has gradually been increasing and he acknowledges drinking juices throughout the day reports she has been reading the food labels, and also making meals following healthy plate method however patient tends to increasing snacks, particularly high sugar snacks BS Monitoring Most Recent Diabetes Results: Cholesterol, (<200) 142 mg/dL 05/22/25 HDL Cholesterol, (>40) 49 mg/dL 05/22/25 Triglycerides, (<150) 113 mg/dL 05/22/25 Creatinine, (0.5-1.4) 1.95 mg/dL H 05/22/25 BUN, (9-16) 32 mg/dL H 05/22/25 Sodium, (135-145) 140 mmol/L 05/22/25 Potassium, (3.3-5.1) 4.7 mmol/L 05/22/25 Chloride, (96-108) 110 mmol/L H 05/22/25 Carbon Dioxide, (22-29) 20 mmol/L L 05/22/25 Calcium, (8.4-10.2) 9.4 mg/dL 05/22/25 AST, (5-37) 22 U/L 05/22/25 ALT, (0-40) 22 U/L 05/22/25 Total Protein, (6.5-8.0) 7.1 g/dL 05/22/25 Albumin, (3.5-5.0) 4.5 g/dL 05/22/25 [facility] Medical History (Updated 12/26/24 @ 12:29 by Linda Pacheco MD) HLD (hyperlipidemia) Diabetes mellitus Prostate cancer Elevated cholesterol HTN (hypertension) Retinopathy CKD (chronic kidney disease), stage III Stress Urinary incontinence GERD (gastroesophageal reflux disease) Chronic constipation Diabetes Surgical History Hx of colonoscopy Hx of esophagogastroduodenoscopy Hx of prostatectomy Status post implantation of artificial urinary sphincter Social History Patient Tobacco Use Status: Former Tobacco user Assessment & Plan Assessment & Plan (1) Diabetes mellitus: Code(s): E11.9 - Type 2 diabetes mellitus without complications Category: Medical Qualifiers: Diabetes mellitus type: type 2 Diabetes mellitus [facility] insulin use: with intermodal owner operator truck driver use Diabetes mellitus complication status: with kidney complications Diabetes mellitus complication detail: with chronic kidney disease Chronic kidney disease stage: stage 3 (moderate) Chronic kidney disease stage 3 subtype: stage 3a (GFR 45-59) Qualified Code(s): E11.22 - Type 2 diabetes mellitus with diabetic chronic kidney disease; N18.31 - Chronic kidney disease, stage 3a; Z79.4 - intermodal owner operator truck driver (current) use of insulin Plan: Wt: 75 Kg (03/16 ), 10/2025) Est kcal needs as per MSJ: 2000 (40% carb, 30% protein/fat) Est fluid needs as per 25-30 ml/d: 2200 Est prot per day as per 1 g/kg bw: 75 Recommend fiber intake : 8-10 g per day and gradually increase to 25-28 g per day for women and 35-38 g for men or as tolerated Recommend sodium intake per day : less than 2000 mg Educated patient on: ( R = reviewed V = verbalizes understanding N/R = needs review N/A = not applicable Food sources of carbohydrate, adequate serving sizes and its role in various health conditions: R Differences between complex carbohydrates a simple carbohydrates, role of fiber in diet: R Lean protein sources of foods: R V Differences between types of fats and role in diet (mono on saturated fat fatty acids, saturated fatty acids, trans fats): R V N/R Food sources of sodium in salt and healthy modifications for heart health in kidney health: R V R/V Vitamins and minerals: R V N/R Healthy plate method concept: R , V Physical activity: Benefits a precaution: R V N/R Hypoglycemia protocol (rule of 15): R V Pt verbalizes rule of 15 Dietary prevention of Hyperglycemia: R Patient Instructions: Resume having water with meals, reducing on empty calorie beverages Limit juices to 4 oz twice a day, or have a fruit instead of the juice Keep physically active as able Coding Level of Care Code Nutr Indiv Subseq (17573) Diagnoses Type 2 diabetes mellitus with stage 3a chronic kidney disease, with long-term current use of insulin E11.22; N18.31; Z79.4 Diabetes mellitus type: type 2 Diabetes mellitus intermodal owner operator truck driver insulin use: with intermodal owner operator truck driver use Diabetes mellitus complication status: with kidney complications Diabetes mellitus complication detail: with chronic kidney disease Chronic kidney disease stage: stage 3 (moderate) Chronic kidney disease stage 3 subtype: stage 3a (GFR 45-59) Time Spent (min) 30
== END 2025-10-31 11:27 | disposition home or self-care (01) ==
LOC: HO.ENCR 10:43
PROVIDERS: PCP Internal Medicine; Visit Provider Dietitian, Registered
DX: E11.22 Type 2 diabetes mellitus with diabetic chronic kidney disease (principal); N18.31 Chronic kidney disease, stage 3a; Z79.4 Long term (current) use of insulin

== ENCOUNTER → 2025-10-31 10:43 | Outpatient (BNVA) | payer MEDICARE, OTHER, SELFPAY | PROVIDERS: PCP Internal Medicine; Visit Provider Dietitian, Registered | DX: E11.22 Type 2 diabetes mellitus with diabetic chronic kidney disease (principal); N18.31 Chronic kidney disease, stage 3a; Z79.4 Long term (current) use of insulin | CPT/HCPCS: 97803 ==